=== PATIENT | female | born 1995 | race Caucasian/White ===

== ENCOUNTER → 2017-07-22 16:05 | Outpatient (CLI) | payer OTHER, SELFPAY ==
[2017-07-22 17:42] LABS: HCG,Quantitative 223 mIU/mL
== END ==
PROVIDERS: Visit Provider Nurse Practitioner Obstetrics & Gynecology
DX: Z32.00 Encounter for pregnancy test, result unknown (principal)
CPT/HCPCS: 36415; 84702

== ENCOUNTER → 2017-07-26 07:35 | Outpatient (CLI) | payer OTHER, SELFPAY ==
[2017-07-26 11:57] LABS: HCG,Quantitative 1369 mIU/mL
== END ==
PROVIDERS: Visit Provider Obstetrics & Gynecology
DX: Z32.00 Encounter for pregnancy test, result unknown (principal)
CPT/HCPCS: 36415; 84702

== ENCOUNTER → 2017-08-19 18:09 | Outpatient (CLI) | payer OTHER, SELFPAY ==
[2017-08-22 19:22] LABS: Neisseria gonorrhoeae, NAA Negative (Negative)
== END ==
PROVIDERS: Family Provider Physician Assistant; PCP Physician Assistant; Visit Provider Obstetrics & Gynecology
DX: Z34.90 Encounter for supervision of normal pregnancy, unspecified, unspecified trimester (principal)
CPT/HCPCS: 87491; 87591

== ENCOUNTER → 2017-08-27 10:28 | Outpatient (CLI) | payer OTHER, SELFPAY ==
--- NOTE | 2017-08-27 10:32 | US_ITS ---
US OB transvaginal HISTORY: ITS.REASON: US OB Dates ORDERING PHYSICIAN: Mitali Sandra MD PATIENT AGE: 22 years COMPARISON: None FINDINGS: An intrauterine gestational sac is present with a pole with a crown-rump length of 2.47cm correlating to gestational age of 9w2d . heart tones are present with an FHR of 157 bpm's. Yolk sac is noted. The amnion and chorion have not yet fused. Adnexa: Unremarkable. IMPRESSION: Live intrauterine gestation at 9 weeks 2 days as described above. Estimated due date is 03/30/2018
[2017-08-27 12:06] LABS: Basophils % 0.1 % (0.1-2.0); Eosinophils # 0.1 K/mm3 (0.0-0.4); Eosinophils % 0.8 % (0.1-12.0); Hematocrit 39.9 % (37.0-47.0); Hemoglobin 13.5 g/dL (12.2-16.2); Lymphocytes # 1.6 K/mm3 (0.7-4.5); Lymphocytes % 14.1 K/mm3 (10-50); Mean Corpuscular HGB Conc 33.7 g/dL (31.8-35.4); Mean Corpuscular Hemoglobin 27.5 pg (27.0-31.2); Mean Corpuscular Volume 81.6 fl (81-99); Mean Platelet Volume 8.1 fl (7.4-10.4); Monocytes # 0.4 K/mm3 (0.1-1.0); Monocytes % 3.8 % (1.7-9.3); Neutrophils % 81.2 % (37.0-80.0); Platelet Count 251 K/mm3 (142-424); Red Blood Count 4.89 M/mm3 (4.20-5.40); Red Cell Distribution Width 12.6 % (11.5-17.5); White Blood Count 11.1 K/mm3 (4.5-13.0)
[2017-08-28 11:17] LABS: HIV Screen 4th Generation wRfx Non Reactive (Non Reactive); Rapid Plasma Reagin Ab Titer Non Reactive (NonRea<1:1)
[2017-09-03 06:51] LABS: Hepatitis B Surface Antigen Negative
[2017-09-03 06:54] LABS: Hepatitis C Antibody <0.1
== END ==
PROVIDERS: Family Provider Physician Assistant; PCP Physician Assistant; Visit Provider Obstetrics & Gynecology
DX: O26.841 Uterine size-date discrepancy, first trimester (principal)
CPT/HCPCS: 36415; 76830; 85025; 86592; 86703; 86762; 86850; 87340; 87380; G0432

== ENCOUNTER 2017-11-07 11:49 | Outpatient (CLI) | payer OTHER, SELFPAY ==
[2017-11-07 11:59] VITALS: BMI 33.6
[2017-11-07 12:04] LABS: Microscopic, Urine URINE MICROSCOPIC (MICROSCOPIC)
[2017-11-07 12:07] LABS: Appearance,Urine CLOUDY (Clear); Bilirubin,Urine Negative (Negative); Blood, Urine 3+ (Negative); Color,Urine YELLOW (Yellow); Glucose,Urine (UA) Negative (Negative); Ketones,Urine Negative (Negative); Leukocyte Esterase,Urine TRACE (Negative); Nitrate,Urine Negative (Negative); PH,Urine 6.5 (5.0-8.5); Protein,Urine TRACE (Negative); Specific Gravity, Urine 1.025 (1.005-1.030)
[2017-11-07 12:12] VITALS: BP 153/76; PULSE 64; RESP 18; TEMP 36.9; O2SAT 96; BMI 33.6
[2017-11-07 12:21] LABS: RBC,Urine 50-100 #/hpf (0-3); WBC,Urine Occasional #/hpf (0-3)
[2017-11-07 12:22] LABS: Bacteria,Urine 1+ /lpf
== END 2017-11-07 14:20 | disposition home or self-care (01) ==
LOC: OBOUT 11:50 → OB 11:51
PROVIDERS: Visit Provider Obstetrics & Gynecology
DX: O26.92 Pregnancy related conditions, unspecified, second trimester (principal); Z3A.19 19 weeks gestation of pregnancy; R10.30 Lower abdominal pain, unspecified
CPT/HCPCS: 59025; 81001; 96360

== ENCOUNTER → 2017-11-10 15:10 | Outpatient (CLI) | payer OTHER, SELFPAY ==
--- NOTE | 2017-11-10 15:11 | US_ITS ---
US OB /maternal detail: INDICATION: Complete 20 week evaluation ITS.REASON: US OB Complete ORDERING PHYSICIAN: Mitali Sandra MD PATIENT AGE: 22 years TECHNIQUE: ultrasound transabdominal scanning. COMPARISON: 08/27/2017 early ultrasound at which time a gestational age 9 weeks 2 days FINDINGS: Single viable intrauterine gestation. Cephalic position. Placenta: Anterior placenta grade 1 with. No previa. There is adequate amount fluid. The cervix appears satisfactory. Closed and measuring up to 3 in length. Complete survey performed and was unremarkable on the submitted images as in PACS. No discrete anomalies identified on survey imaging by technologist. Active fetus. Appears to be a 2 vessel rather than three-vessel cord. Satisfactory umbilical cord insertion. 4- chamber heart noted. Survey of brain & ventricles. Face and neck survey unremarkable. Nasion lip region unremarkable Diaphragm and chest views unremarkable. Abdomen: Both kidneys noted and unremarkable. Stomach noted and satisfactory. Spine: Survey of the spine satisfactory with no anomalies identified nor imaged. Both arms and legs noted. Appears to be a female fetus Amniotic Fluid: Adequate. Maternal adnexa: No incidental findings encountered. Measurements: Average ultrasound age 20 weeks 5 days. Gestational Age 20 weeks 0 days. Based on and the 06-23-17 Estimated due date by ultrasound age March 28, 2018. Estimated weight 330 g +/- 48 grams. BPD = 20 week 5 day OFD = 21 week 2 day HC = 20 week 2 day AC = 20 week 1 day FL = 20 week 0 day Growth Percentile= 49% percentile Heart Rate = 146 Cerebellum = 20 week 4 day Humerus = 20 week 5 day HC/AC is 1.2.0 CI is 76%. FL/BPD is 66%. FL/AC is 22%. IMPRESSION: Single active viable intrauterine gestation. Cephalic position. 20 week 2 day average ultrasound age Anterior placenta no previa. Appears to be a two-vessel cord Otherwise unremarkable anatomical survey
== END ==
PROVIDERS: Family Provider Physician Assistant; PCP Physician Assistant; Visit Provider Obstetrics & Gynecology
DX: Z36.0 Encounter for antenatal screening for chromosomal anomalies (principal)
CPT/HCPCS: 76811

== ENCOUNTER → 2017-11-21 13:34 | Outpatient (CLI) | payer OTHER, SELFPAY ==
[2017-11-21 14:57] LABS: Collection Time,Urine 24 hours; Creatinine 24 Hour,Urine 1420 mg/24hr (630-2500); Creatinine Clearance Urine 167.1 mL/min (25-115); Creatinine,Serum 0.59 mg/dL (0.55-1.02); Creatinine,Urine Random 71 mg/dL (20-320); Total Volume,Urine 2000 mL (600-1600)
[2017-11-21 14:58] LABS: Total Protein 24 Hour,Urine 164 mg/24 hr (40-90); Total Protein,Urine Random 8.2 mg/dL (0.0-11.9)
== END ==
PROVIDERS: Family Provider Physician Assistant; PCP Physician Assistant; Visit Provider Obstetrics & Gynecology
DX: Z34.90 Encounter for supervision of normal pregnancy, unspecified, unspecified trimester (principal)
CPT/HCPCS: 36415; 82575; 84155

== ENCOUNTER 2018-01-17 10:45 | Outpatient (CLI) | payer OTHER, SELFPAY ==
[2018-01-17 10:54] VITALS: BMI 36.8
[2018-01-17 11:06] LABS: Bilirubin,Urine Negative (Negative); Blood, Urine Negative (Negative); Color,Urine YELLOW (Yellow); Glucose,Urine (UA) Negative (Negative); Ketones,Urine Negative (Negative); Leukocyte Esterase,Urine TRACE (Negative); Microscopic, Urine URINE MICROSCOPIC (MICROSCOPIC); Nitrate,Urine Negative (Negative); PH,Urine 7.5 (5.0-8.5); Protein,Urine Negative (Negative); Urobilinogen,Urine 0.2 EU/dl (0.2)
[2018-01-17 11:08] VITALS: BP 135/79; PULSE 91; RESP 18; TEMP 36.8; O2SAT 98; BMI 35.9
[2018-01-17 11:08] LABS: Appearance,Urine Cloudy (Clear)
[2018-01-17 11:15] LABS: Amorphous Sediment,Urine 2+ /lpf; Bacteria,Urine 1+ /lpf; Squamous Epithelial Cell,Urine Occasional #/hpf (0-5); WBC,Urine Occasional #/hpf (0-3)
[2018-01-17 13:12] LABS: Basophils % 0.2 % (0.1-2.0); Eosinophils # 0.1 K/mm3 (0.0-0.4); Eosinophils % 0.7 % (0.1-12.0); Hematocrit 31.3 % (37.0-47.0); Lymphocytes # 1.5 K/mm3 (0.7-4.5); Lymphocytes % 10.8 K/mm3 (10-50); Mean Corpuscular HGB Conc 38.3 g/dL (31.8-35.4); Mean Corpuscular Hemoglobin 31.3 pg (27.0-31.2); Mean Corpuscular Volume 81.7 fl (81-99); Mean Platelet Volume 7.9 fl (7.4-10.4); Monocytes # 0.5 K/mm3 (0.1-1.0); Monocytes % 3.4 % (1.7-9.3); Neutrophils # 11.7 K/mm3 (1.8-7.8); Neutrophils % 84.8 % (37.0-80.0); Platelet Count 189 K/mm3 (142-424); Red Blood Count 3.84 M/mm3 (4.20-5.40); Red Cell Distribution Width 13.1 % (11.5-17.5); White Blood Count 13.8 K/mm3 (4.5-13.0)
[2018-01-17 13:25] LABS: Activated Partial Thrombo Time 29.6 seconds (23.6-34.0); Alanine Aminotransferase 13 U/L (12-78); Anion Gap 13.7 mEq/L (5-15); Aspartate Amino Transferase 7 U/L (15-37); Blood Urea Nitrogen 7 mg/dL (7-18); Calcium 8.6 mg/dL (8.5-10.1); Carbon Dioxide 23 mmol/L (21.0-32.0); Chloride 102 mmol/L (98-107); Creatinine Clearance Estimated 266 mL/min (0-300); Creatinine,Serum 0.49 mg/dL (0.55-1.02); Estimated Glomerular Filt Rate 161 ml/min (>60); GFR (African American) 195 ML/MIN (>60); Glucose 79 mg/dL (74-106); INR 0.99 (0.9-1.1); Potassium 3.7 mmoL/L (3.5-5.1); Prothrombin Time 10.2 seconds (9.4-11.8); Sodium 135 mmol/L (136-145); Uric Acid 3.1 mg/dL (2.6-7.2)
[2018-01-17 13:36] LABS: D-Dimer 736 ng/mL (0-400)
[2018-01-17 14:59] LABS: Fibrinogen 423 mg/dL (204-500)
== END 2018-01-17 13:58 | disposition home or self-care (01) ==
LOC: OBOUT 10:48 → OB 10:48
PROVIDERS: Obstetrics & Gynecology; PCP Physician Assistant; Visit Provider Obstetrics & Gynecology
DX: O26.892 Other specified pregnancy related conditions, second trimester (principal); Z3A.29 29 weeks gestation of pregnancy; R51 Headache; R42 Dizziness and giddiness; R11.2 Nausea with vomiting, unspecified
CPT/HCPCS: 36415; 59025; 80048; 81001; 84450; 84460; 84550; 85025; 85378; 85384; 85610; 85730

== ENCOUNTER → 2018-02-17 12:06 | Outpatient (CLI) | payer OTHER, SELFPAY ==
--- NOTE | 2018-02-17 12:09 | US_ITS ---
US OB biophysical profile, US OB follow up, US SD Ratio umbilical artery: Indication: Large for gestational age, chronic hypertension ITS.REASON: US OB- BPP Growth S/D Ratio-Chronic Hypertension ORDERING PHYSICIAN: Mitali Sandra MD PATIENT AGE: 22 years FINDINGS: The following parameters are obtained: Average ultrasound age is 36w0d. Estimated due date by ultrasound is 03/17/2018. Estimated weight is 2763 grams. This is 88th percentile BPD: 36w1d OFD: OFD HC: 36w5d AC: 36w3d FL: 34w2d heart rate: 153 bpm. HC/AC: 1.00 (0.95-1.11) Cephalic index: 77% (70-86%) FL/BPD: 74% (71-87%) FL/AC: 21% (20-24%) Amniotic fluid index: 11 cm Qualitative AFV: 2 breathing movements: 2 Gross body movements: 2 Tone: 2 Biophysical profile score: 8/8 Doppler evaluation of the umbilical artery: SD ratio: 2.9 Resistive index: 0.65 No obvious anomalies evident. Placenta: Anterior GR1 Cervix: Appears closed and measures 2.6 cm IMPRESSION: There is a single live fetus present which is in cephalic presentation with average ultrasound age of 36 weeks and 0 days. Estimated weight is 2763 g which is 88 percentile. No obvious anomalies. Biophysical profile is 8 of 8. Placenta is anterior and grade 2 Umbilical artery Doppler evaluation is unremarkable. Amniotic fluid index is normal at 11 cm
== END ==
PROVIDERS: PCP Obstetrics & Gynecology; Visit Provider Obstetrics & Gynecology
DX: O10.919 Unspecified pre-existing hypertension complicating pregnancy, unspecified trimester (principal)
CPT/HCPCS: 76816; 76819; 76820

== ENCOUNTER → 2018-02-18 09:15 | Outpatient (CLI) | payer OTHER, SELFPAY ==
[2018-02-18 10:33] LABS: Creatinine,Serum 0.53 mg/dL (0.55-1.02)
[2018-02-18 11:15] LABS: Creatinine,Urine Random 67 mg/dL (20-320); Total Protein,Urine Random 11.5 mg/dL (0.0-11.9)
[2018-02-18 11:44] LABS: Collection Time,Urine 24 hours; Creatinine 24 Hour,Urine 1240 mg/24hr (630-2500); Creatinine Clearance Urine 162.4 mL/min (25-115); Total Protein 24 Hour,Urine 213 mg/24 hr (40-90); Total Volume,Urine 1850 mL (600-1600)
== END ==
PROVIDERS: Visit Provider Obstetrics & Gynecology
DX: Z34.90 Encounter for supervision of normal pregnancy, unspecified, unspecified trimester (principal)
CPT/HCPCS: 82575; 84155

== ENCOUNTER → 2018-02-26 16:38 | Outpatient (CLI) | payer OTHER, SELFPAY | LOC: LAB 16:39 → LAB.DROPOF 02-27 10:14 | PROVIDERS: Visit Provider Obstetrics & Gynecology | DX: Z34.90 Encounter for supervision of normal pregnancy, unspecified, unspecified trimester (principal) | CPT/HCPCS: 86403 ==

== ENCOUNTER → 2018-03-06 07:52 | Outpatient (CLI) | payer OTHER, SELFPAY ==
--- NOTE | 2018-03-06 07:53 | US_ITS ---
US OB BPP w/Fet-Mat S/D: Umbilical artery Doppler evaluation INDICATION: Large gestational age ORDERING PHYSICIAN: Mitali Sandra MD PATIENT AGE: 22 years TECHNIQUE: ultrasound transabdominal scanning. COMPARISON: No previous relevant studies. FINDINGS: Single viable intrauterine gestation. CEPH position. Placenta: Anterior placenta grade 1-2. There is average amount fluid. The cervix appears satisfactory. Closed and measuring 3 cm in length. Measurements: Average ultrasound age 37w3d. Gestational Age 36w4d. Estimated due date by ultrasound age 0103/24/2018. Estimated weight 3216 grams. BPD = 37w6d HC = 37w5d AC = 28w0d FL = 36w1d Growth Percentile= 77 percentile Heart Rate = 153 Biophysical profile is 8 of 8 with an PIO of 16 cm HC/AC is 0.97 (0.93-1.11). CI is 80% (70-86%). FL/BPD is 76% (71-87%). FL/AC is 21% (20-24%). IMPRESSION: 1. There is a single live fetus presentation with an average ultrasound age of 37 weeks and 3 days. Estimated weight is 3216 g which is 77 percentile. 2. Biophysical profile is 8 of 8 with amniotic fluid index of 16 cm. 3. Unremarkable Doppler evaluation of the umbilical artery
== END ==
PROVIDERS: PCP Physician Assistant; Visit Provider Obstetrics & Gynecology
DX: O36.63X0 Maternal care for excessive fetal growth, third trimester, not applicable or unspecified (principal)
CPT/HCPCS: 76811; 76819; 76820

== ENCOUNTER 2018-03-09 18:17 | Outpatient (CLI) | payer OTHER, SELFPAY ==
[2018-03-09 18:37] VITALS: RESP 20; BMI 39.6
[2018-03-09 18:56] LABS: Microscopic, Urine URINE MICROSCOPIC (MICROSCOPIC)
[2018-03-09 19:07] LABS: Appearance,Urine CLEAR (Clear); Bilirubin,Urine Negative (Negative); Blood, Urine Negative (Negative); Color,Urine YELLOW (Yellow); Glucose,Urine (UA) Negative (Negative); Ketones,Urine Negative (Negative); Leukocyte Esterase,Urine 1+ (Negative); Nitrate,Urine Negative (Negative); Protein,Urine Negative (Negative); Specific Gravity, Urine 1.015 (1.005-1.030); Urobilinogen,Urine 0.2 EU/dl (0.2)
[2018-03-09 19:15] LABS: Bacteria,Urine Trace /lpf
== END 2018-03-09 19:55 | disposition home or self-care (01) ==
LOC: OBOUT 18:19 → OB 18:20
PROVIDERS: PCP Physician Assistant; Visit Provider Obstetrics & Gynecology
DX: O13.3 Gestational [pregnancy-induced] hypertension without significant proteinuria, third trimester (principal); Z3A.37 37 weeks gestation of pregnancy
CPT/HCPCS: 59025; 81001; 87086

== ENCOUNTER 2018-03-18 16:09 | Inpatient (IN) ==
[2018-03-18 17:17] LABS: Basophils % 0.1 % (0.1-2.0); Eosinophils # 0.2 K/mm3 (0.0-0.4); Eosinophils % 1.3 % (0.1-12.0); Hematocrit 35.1 % (37.0-47.0); Hemoglobin 12.1 g/dL (12.2-16.2); Lymphocytes # 2.1 K/mm3 (0.7-4.5); Lymphocytes % 15.6 % (10-50); Mean Corpuscular HGB Conc 34.4 g/dL (31.8-35.4); Mean Corpuscular Hemoglobin 28.3 pg (27.0-31.2); Mean Corpuscular Volume 82.3 fl (81-99); Mean Platelet Volume 8.6 fl (7.4-10.4); Monocytes # 0.6 K/mm3 (0.1-1.0); Monocytes % 4.4 % (1.7-9.3); Neutrophils # 10.3 K/mm3 (1.8-7.8); Neutrophils % 78.6 % (37.0-80.0); Platelet Count 207 K/mm3 (142-424); Red Blood Count 4.27 M/mm3 (4.20-5.40); Red Cell Distribution Width 13.2 % (11.5-17.5); White Blood Count 13.1 K/mm3 (4.5-13.0)
[2018-03-19 06:15] LABS: Basophils % 0.1 % (0.1-2.0); Eosinophils # 0.1 K/mm3 (0.0-0.4); Eosinophils % 1.1 % (0.1-12.0); Hematocrit 34.5 % (37.0-47.0); Lymphocytes # 2.3 K/mm3 (0.7-4.5); Lymphocytes % 17.7 % (10-50); Mean Corpuscular HGB Conc 34.7 g/dL (31.8-35.4); Mean Corpuscular Hemoglobin 28.7 pg (27.0-31.2); Mean Corpuscular Volume 82.7 fl (81-99); Mean Platelet Volume 8.9 fl (7.4-10.4); Monocytes # 0.6 K/mm3 (0.1-1.0); Neutrophils # 9.8 K/mm3 (1.8-7.8); Neutrophils % 76.1 % (37.0-80.0); Platelet Count 195 K/mm3 (142-424); Red Blood Count 4.17 M/mm3 (4.20-5.40); Red Cell Distribution Width 13.4 % (11.5-17.5); White Blood Count 12.9 K/mm3 (4.5-13.0)
[2018-03-19 06:24] LABS: Anion Gap 17.4 mEq/L (5-15); Calcium 8.4 mg/dL (8.5-10.1); Potassium 3.4 mmoL/L (3.5-5.1)
[2018-03-19 06:29] LABS: Activated Partial Thrombo Time 28.5 seconds (23.6-34.0); INR 0.97 (0.9-1.1)
[2018-03-19 06:54] LABS: Microscopic, Urine URINE MICROSCOPIC (MICROSCOPIC)
[2018-03-19 06:59] LABS: Appearance,Urine CLEAR (Clear); Bilirubin,Urine Negative (Negative); Blood, Urine 2+ (Negative); Color,Urine YELLOW (Yellow); Glucose,Urine (UA) Negative (Negative); Ketones,Urine Negative (Negative); Leukocyte Esterase,Urine Negative (Negative); Protein,Urine Negative (Negative); Urobilinogen,Urine 0.2 EU/dl (0.2)
[2018-03-19 07:09] LABS: Bacteria,Urine Trace /lpf; Squamous Epithelial Cell,Urine Occasional #/hpf (0-5)
--- NOTE | 2018-03-19 21:54 | Progress Note ---
[facility] Anesthesia Checklist - Structural Data Admitted From: Inpatient Planned Operative Procedure/s: labor epidural Consent for Planned Operative Procedure(s) Verified: Yes - Airway Assessment C-Spine Mobility Assessed: Yes TMJ Mobility Assessed: Yes Dentition: Good Dentition - Neurological Assessment Level of Consciousness: Awake, Alert, Appropriate - Anesthesia Plan Anesthesia Risk discussed: Yes Anesthesia Plan: Verified ASA Class: II Anesthesia Type: Epidural [facility] History I have reviewed the patient's past medical history: Yes Medical History: Denies:: Anxiety, Depression, Diabetes Mellitus Type 1, Hyperlipidemia, Hypertension, Migraine, MRSA, Seizures Other Surgeries: No: Amputation: No Fractures: No - *Social History Smoking Status: Never smoker Alcohol Intake: never Substance Use Type: denies use - Psychiatric History Pschychiatric History:: Denies:: Anxiety, Depression *Family Hx:: Cancer, Diabetes, Thyroid Disorder, Hyperlipidemia, Asthma Para: 0
--- NOTE | 2018-03-20 08:12 | History & Physical Report ---
OB - H&P: HPI Antepartum - History of Present Illness Chief complaint: IOL History of present illness: 22 yo G1 at 39+ scheduled IOL at term complicated by CHTN vs PIH labs WNL Initial 20 wk anatomy ultrasound identified a 2VC, but, f/u ultrasound done by MFM identified 3VC testing has been reassuring BP has been managed with labetalol 100mg BID Cervix unfavorable and she is brought in tonight for PG ripening and intra- cervical yarbrough bulb [facility] History I have reviewed the patient's past medical history: Yes Medical History: Denies:: Anxiety, Depression, Diabetes Mellitus Type 1, Hyperlipidemia, Hypertension, Migraine, MRSA Other Surgeries: No: Amputation: No Fractures: No - *Social History Smoking Status: Never smoker Alcohol Intake: never Substance Use Type: denies use - Psychiatric History Pschychiatric History:: Denies:: Anxiety, Depression *Family Hx:: Cancer, Diabetes, Thyroid Disorder, Hyperlipidemia, Asthma Para: 0 Review of Systems - Review of Systems CONSTITUTIONAL: no fever/chills HEENT: no oral lesions PULMONARY: no shortness of breath or difficulty breathing CV: no racing heart, palpitations or chest pain ABD: no abdominal pain, N/V : irreg ctx; no lof/vb SKIN: no new rash or skin lesions EXT: no edema NEURO: no mental status changes, no [place]/visual changes PSYCH: no current anxiety/depression OB: normal movement Meds Home Medications Medication Instructions Recorded Confirmed Type vit 123-iron 28 mg-folic 1 cap PO HS 08/19/17 03/19/18 History acid 800 [id number]-[id number]-3g 235 mg capsule Labetalol HCl 100 mg PO BID 03/18/18 03/18/18 History Nitrofurantoin Monohyd/M-Cryst 100 mg PO BID 03/18/18 03/18/18 History [Nitrofurantoin [place]-Mcr 100 mg] Allergies Allergy/AdvReac Type Severity Reaction Status Date / Time No Known Allergies Allergy Verified 03/12/18 10:37 OB - H&P: Exam - Physical Exam Vital signs: Temp Pulse Resp BP Pulse Ox 98.5 F 75 16 148/88 H 98 03/19/18 08:10 03/19/18 08:10 03/19/18 08:10 03/19/18 08:10 03/19/18 08:10 Narrative: CONSTITUTIONAL: no acute distress HEENT: mucous membranes moist PULMONARY: breathing unlabored without audible wheezes CV: no tachycardia or visible JVD; normal LE peripheral pulses ABD: soft, NT/ND, no guarding : Cervix 1/80/-2 Yarbrough bulb placed through cervix under sterile conditions and balloon insufflated with 30cc sterile water Cervidil placed in vagina Balloon pulled taught against internal cervical os and tubing taped to p atient's inner thigh SKIN: no visible rash or lesions EXT: 1+ edema LEs NEURO: alert/oriented, no altered mental status PSYCH: appropriate mood and demeanor without visible anxiety/depression NST: Basline: 150 Variability: moderate Accelerations: yes Decelerations: no Impression: Reactive, Category 1 OB - A/P Antepartum (1) Unfavorable cervix in term Current visit: Yes Status: Acute (2) Hypertension affecting in third trimester Problem details: labetalol 100 BID Current visit: No Status: Acute (3) LGA (large for gestational age) fetus Problem details: 88% Current visit: No Status: Acute - Additional Plan Additional Information:: IOL at term PG ripening with cervidil overnight Yarbrough bulb placed MIGUEL against cervix Start pitocin augmentation in am status reassuring continuous monitoring
--- NOTE | 2018-03-20 10:59 | Progress Note ---
Labor Note - Subjective: Date: 03/19/18 Time: 18:05 regular contraction - Objective: NST:: Reactive Contractions:: every 2-3 minutes Cervical Dilation:: 3-4 Effacement:: 80% Station: 0 Membranes: ruptured - Fetus: monitoring type:: Internal - Assessment: Labor progressing?: Yes Patient Problems: All Active Problems Unfavorable cervix in term (Acute) Hypertension affecting in third trimester (Acute) LGA (large for gestational age) fetus (Acute) Nausea and vomiting during (Acute) (Acute) - Plan: Anesthesia for epidural?: Yes
--- NOTE | 2018-03-20 11:01 | Procedure Note ---
- Delivery Note Delivery Date:: 03/20/18 Delivery Time:: 07:30 Anesthesia Type: Epidural Was labor medically induced?: Yes Induction method: per pitocin protocol Infant delivered prior to 39 weeks?: No Justification for early elective delivery:: Gestational Hypertension at 1 minute: 8 at 5 minutes: 9 LAC or MLE?: LAC Delivery Procedure:: Spontaneous vaginal delivery of vigorous liveborn over intact perineum. Apgars: 8 & 9 Delivery uncomplicated; no nuchal cord or shoulder dystocia with delivery Infant placed immediately on maternal abdomen for nursing assessment & BRITTA immediately after umbilical cord clamped/cut Placenta spontaneously expressed and examined; noted to be complete/intact Vulva, vagina, and cervix inspected; second degree laceration repaired with 2-0 vicryl EBL: 300cc All sponge/needle/instrument counts correct at conclusion of procedure Disposition: Mom/baby stable to recovery in LDRP Laceration:: vaginal Placental Delivery Description: Spontaneous
[2018-03-21 06:49] LABS: Hematocrit 26.7 % (37.0-47.0); Hemoglobin 9.2 g/dL (12.2-16.2)
--- NOTE | 2018-03-21 17:55 | Progress Note ---
Internal Medicine - PN: Subj *Date: 03/21/18 *Time: 14:30 Interval history: PPD #1 No complaints Lochia small, pain control sufficient Akin reg diet, ambulating and voiding without difficulty Exam Vital signs and Labs for Last 24 Hours: Temp Pulse Resp BP Pulse Ox 98.5 F 75 16 148/88 H 98 03/19/18 08:10 03/19/18 08:10 03/19/18 08:10 03/19/18 08:10 03/19/18 08:10 Laboratory Results - last 24 hr 03/21/18 06:38: Hgb 9.2 L, Hct 26.7 L I & O for Last 24 hours: Intake & Output 03/19/18 03/20/18 03/21/18 03/22/18 11:59 11:59 11:59 11:59 Weight 224 lb Narrative: CONSTITUTIONAL: no acute distress HEENT: mucous membranes moist PULMONARY: breathing unlabored without audible wheezes CV: no tachycardia or visible JVD; normal LE peripheral pulses ABD: soft, NT/ND, no guarding : fundus firm at/below umbilicus SKIN: no visible rash or lesions EXT: 1+ edema LEs NEURO: alert/oriented, no altered mental status PSYCH: appropriate mood and demeanor without visible anxiety/depression Assessment and Plan (1) Unfavorable cervix in term Current visit: Yes Status: Acute Category: Medical Code(s): O34.40 - Maternal care for other abnormalities of cervix, unspecified trimester (2) Normal vaginal delivery Current visit: Yes Status: Acute Category: Medical Code(s): O80 - Encounter for full-term uncomplicated delivery (3) Hypertension affecting in third trimester Problem details: labetalol 100 BID Current visit: No Status: Acute Category: Medical Code(s): O16.3 - Unspecified maternal hypertension, third trimester (4) LGA (large for gestational age) fetus Problem details: 88% Current visit: No Status: Acute Category: Medical - Assessment and plan all Dx Assessment and Plan for all problems:: Continue routine care Anticipate discharge tomorrow
[2018-03-21 21:04] VITALS: BP 132/71
--- NOTE | 2018-03-22 09:31 | Progress Note ---
Internal Medicine - PN: Subj *Date: 03/22/18 *Time: 09:31 Interval history: This is hospital day #5 and day #2. The patient is afebrile. Her vital signs are stable. Her blood pressure is 130/80. DTRs are normal. Lochia normal. Uterine fundus involuting well. She will be discharged today. Exam Vital signs and Labs for Last 24 Hours: Temp Pulse Resp BP Pulse Ox 98.2 F 90 16 132/71 98 03/21/18 20:46 03/21/18 20:46 03/21/18 20:46 03/21/18 20:46 03/21/18 20:46 I & O for Last 24 hours: Intake & Output 03/19/18 03/20/18 03/21/18 03/22/18 11:59 11:59 11:59 11:59 Weight 224 lb Assessment and Plan (1) Unfavorable cervix in term Current visit: Yes Status: Acute Category: Medical Code(s): O34.40 - Maternal care for other abnormalities of cervix, unspecified trimester (2) Normal vaginal delivery Current visit: Yes Status: Acute Category: Medical Code(s): O80 - Encounter for full-term uncomplicated delivery (3) Hypertension affecting in third trimester Problem details: labetalol 100 BID Current visit: No Status: Acute Category: Medical Code(s): O16.3 - Unspecified maternal hypertension, third trimester (4) LGA (large for gestational age) fetus Problem details: 88% Current visit: No Status: Acute Category: Medical
--- NOTE | 2018-03-22 09:34 | Discharge Summary ---
General - General Admission date:: 03/18/18 Discharge date: 03/22/18 (This 22-year-old 1, now para 1, Ab0 white female was admitted at 38-2/7 weeks for induction because of preeclampsia. She was treated with Cervidil, intravenous Pitocin, and Cytotec, and ultimately delivered at 0711 on 03/20/18. The baby was an 9/9, 8 pound 0 ounce, 19.5 inch female infant, who is breast-feeding and is done well. , the patient is done well. Her blood pressure has normalized at 130/80. Her DTRs are normal. Her lochia is normal. Her uterine fundus has involuted well. She is discharged home on the second day on iron and vitamins, and on Tylenol and Motrin, as needed for pain. She is given appropriate instructions as to diet, exercise, and perineal care, and she is to return to see Dr. Sandra for a checkup in 2 weeks. Her blood type is A+. Her rubella titer is immune.) Objective Vital signs: Temp Pulse Resp BP Pulse Ox 98.2 F 90 16 132/71 98 03/21/18 20:46 03/21/18 20:46 03/21/18 20:46 03/21/18 20:46 03/21/18 20:46 DS: Diagnosis - Discharge Diagnosis (1) Unfavorable cervix in term Status: Acute (2) Normal vaginal delivery Status: Acute (3) Hypertension affecting in third trimester Status: Acute Problem details: labetalol 100 BID (4) LGA (large for gestational age) fetus Status: Acute Problem details: 88% Discharge Plan - Patient Discharge Instructions Patient Instructions: Depression, DI for Labor and Delivery, Vaginal , [facility] Post Discharge Instructions - Follow up Plan Home Medications: Home Medications Medication Instructions Recorded Confirmed Type vit 123-iron 28 mg-folic 1 cap PO HS 08/19/17 03/19/18 History acid 800 dgq-weewf-9l 235 mg capsule Labetalol HCl 100 mg PO BID 03/18/18 03/18/18 History Nitrofurantoin Monohyd/M-Cryst 100 mg PO BID 03/18/18 03/18/18 History [Nitrofurantoin [place]-Mcr 100 mg] Prescriptions/Medication Reconciliation: No Action vit 123-iron 28 mg-folic acid 800 kmh-hxauk-9w 235 mg capsule 1 cap PO HS Nitrofurantoin Monohyd/M-Cryst [Nitrofurantoin [place]-Mcr 100 mg] 100 mg PO BID Labetalol HCl 100 mg PO BID
== END 2018-03-22 11:20 | disposition home or self-care (01) | DRG 807 ==
LOC: OB 16:09
PROVIDERS: ADMIT Obstetrics & Gynecology; ATTEND Obstetrics & Gynecology
CPT/HCPCS: C1758

== ENCOUNTER → 2019-07-28 14:07 | Outpatient (CLI) | payer OTHER, SELFPAY ==
[2019-07-28 16:07] LABS: HCG,Quantitative < 2 mIU/ml (0-5.42)
== END ==
PROVIDERS: Visit Provider Obstetrics & Gynecology
DX: Z34.90 Encounter for supervision of normal pregnancy, unspecified, unspecified trimester (principal)
CPT/HCPCS: 36415; 84702

== ENCOUNTER → 2019-11-15 17:57 | Outpatient (CLI) | payer OTHER, MEDICAID, SELFPAY ==
[2019-11-15 19:04] LABS: HCG,Quantitative 5477 mIU/ml (0-5.42)
== END ==
PROVIDERS: Visit Provider Obstetrics & Gynecology
DX: Z32.00 Encounter for pregnancy test, result unknown (principal)
CPT/HCPCS: 36415; 84702

== ENCOUNTER → 2019-12-06 14:53 | Outpatient (CLI) | payer OTHER, MEDICAID, SELFPAY ==
--- NOTE | 2019-12-06 14:53 | US_ITS ---
PROCEDURE: US OB TRANSVAGINAL CLINICAL INDICATION: Dates Early Ob for dates COMPARISON: US OBBIOCOMP US OB BPP w/Fet-Mat S/D from 03/06/2018 FINDINGS: An intrauterine gestational sac is present with a pole with a crown-rump length of 1.62cm correlating to gestational age of 8weeks 1day. heart tones are present with an FHR of 182bpm. Yolk sac is noted. There is a nineteen mm corpus luteum cyst on the right. No cul-de-sac fluid is evident. The uterus is retroverted IMPRESSION: Live IUP at 8 weeks 1 day Estimated due date by Ultrasound is 07/16/2020 Dictated by: Dilshad Herrera MD 12/06/2019 15:57 Dilshad Herrera MD in [place] 12/06/2019 15:57
== END ==
PROVIDERS: PCP Family Medicine; Visit Provider Obstetrics & Gynecology
DX: Z34.90 Encounter for supervision of normal pregnancy, unspecified, unspecified trimester (principal)
CPT/HCPCS: 76817

== ENCOUNTER → 2019-12-10 09:45 | Outpatient (CLI) | payer OTHER, MEDICAID, SELFPAY ==
[2019-12-10 10:27] LABS: Basophils % 0.2 % (0.1-2.0); Eosinophils # 0.1 K/mm3 (0.0-0.4); Hematocrit 37.3 % (37.0-47.0); Hemoglobin 13.5 g/dL (12.2-16.2); Lymphocytes # 1.8 K/mm3 (0.7-4.5); Lymphocytes % 16.3 % (10-50); Mean Corpuscular HGB Conc 36.1 g/dL (31.8-35.4); Mean Corpuscular Volume 83.1 fl (81-99); Mean Platelet Volume 8.1 fl (7.4-10.4); Monocytes # 0.5 K/mm3 (0.1-1.0); Monocytes % 4.1 % (1.7-9.3); Neutrophils # 8.5 K/mm3 (1.8-7.8); Neutrophils % 78.4 % (37.0-80.0); Platelet Count 251 K/mm3 (142-424); Red Blood Count 4.49 M/mm3 (4.20-5.40); Red Cell Distribution Width 12.6 % (11.5-17.5); White Blood Count 10.8 K/mm3 (4.8-10.8)
[2019-12-10 15:09] LABS: Barbiturates Screen,Urine Negative ng/ml (<200)
[2019-12-10 15:10] LABS: Amphetamine/Metha Screen,Urine Negative ng/ml (<1000); Benzodiazepines Screen,Urine Negative ng/ml (<200)
[2019-12-10 15:11] LABS: Cocaine Screen,Urine Negative ng/ml (<300); Methadone Screen,Urine Negative ng/ml (<300)
[2019-12-10 15:12] LABS: Cannabinoid Screen,Urine Negative ng/ml (<50)
[2019-12-10 15:13] LABS: Opiate Screen,Urine Negative ng/ml (<300); Phencyclidine Screen,Urine Negative ng/ml (<25)
[2019-12-11 18:20] LABS: HIV Screen 4th Generation wRfx Non Reactive (Non Reactive); Hepatitis B Surface Antigen Negative (Negative); Hepatitis C Antibody <0.1 s/co ratio (0.0-0.9); Rapid Plasma Reagin Ab Titer Non Reactive (NonRea<1:1); Rubella Antibodies, IgG 1.27 index (Immune >0.99)
== END ==
PROVIDERS: Visit Provider Obstetrics & Gynecology
DX: Z34.90 Encounter for supervision of normal pregnancy, unspecified, unspecified trimester (principal)
CPT/HCPCS: 36415; 80305; 85025; 86592; 86703; 86762; 86850; 87340; 87380; G0432

== ENCOUNTER 2020-02-15 11:41 | Emergency (ER) | payer OTHER, MEDICAID, SELFPAY ==
[2020-02-15] VITALS (10 sets, daily range): BP systolic 111–153; BP diastolic 49–76; PULSE 60–100; RESP 15–16; TEMP 36.7; O2SAT 98–100; BMI 32.9
--- NOTE | 2020-02-15 12:11 | [facility].EDGENADL ---
ED Disposition Clinical Impression: Near syncope, Nausea/vomiting in Urinary tract infection Qualifiers: Urinary tract infection type: acute cystitis Hematuria presence: with hematuria Qualified Code(s): N30.01 - Acute cystitis with hematuria Disposition: Home, Self-Care Condition on Discharge: Fair Instructions: DI for Syncope in Adults (Fainting), DI for Urinary Tract Infection (UTI) Additional Instructions: You have been evaluated for near syncope. Diagnosed with a urinary tract infection. Blood pressure is now within normal limits and no protein in your urine, no evidence of pre-eclampsia. Please follow-up with your OCCUPATIONAL HEALTH AND SAFETY OFFICER in 24 to 48 hours for symptom recheck. Return to the emergency department if you have any new or worsening symptoms. Prescriptions: cephALEXin [cephALEXin 500mg capsule*] 500 mg PO BID 7 Days #14 cap Transmission Status: Received by [facility] #[id number] Referrals: Umair Magdaleno MD [Primary Care Provider] - Time of Disposition: 13:43 - Critical Care Critical Care Time: No Attestation: On 02/15/20, the high probability of a clinically significant, sudden or life threatening deterioration of the following system(s) required my full and direct attention, intervention and personal management. The time I documented below is in addition to time spent performing reported procedures but includes the following listed in this critical care notation. Medical Decision Making - Medical Records Medical records reviewed: Yes: I reviewed the patient's medical records. - [place] Inquiry Pt receiving controlled substance: No Vital Signs: 02/15/20 11:42 02/15/20 11:56 02/15/20 12:12 Temperature 98.1 F Temperature Source Oral Pulse Rate Pulse Rate [Right Brachial] 79 100 H 72 Respiratory Rate 16 Blood Pressure Blood Pressure [Right Arm] 131/57 L 153/76 H 115/49 L Blood Pressure Mean [Right Arm] 81 101 71 Blood Pressure Source Blood Pressure Source [Right Arm] Automatic Cuff Automatic Cuff Automatic Cuff Blood Pressure Position Blood Pressure Position [Right Arm] Sitting Sitting Sitting 02 Sat by Pulse Oximetry 99 99 98 Oxygen Delivery Method Room Air Room Air Room Air 02/15/20 12:30 02/15/20 13:00 02/15/20 13:30 Temperature Temperature Source Pulse Rate Pulse Rate [Right Brachial] 72 70 67 Respiratory Rate Blood Pressure Blood Pressure [Right Arm] 111/56 L 116/56 L 120/55 L Blood Pressure Mean [Right Arm] 74 76 76 Blood Pressure Source Blood Pressure Source [Right Arm] Automatic Cuff Automatic Cuff Automatic Cuff Blood Pressure Position Blood Pressure Position [Right Arm] Sitting Sitting Sitting 02 Sat by Pulse Oximetry 98 100 100 Oxygen Delivery Method Room Air Room Air Room Air 02/15/20 14:00 02/15/20 14:30 02/15/20 15:00 Temperature Temperature Source Pulse Rate Pulse Rate [Right Brachial] 67 66 60 Respiratory Rate Blood Pressure Blood Pressure [Right Arm] 115/64 113/63 113/56 L Blood Pressure Mean [Right Arm] 81 79 75 Blood Pressure Source Blood Pressure Source [Right Arm] Automatic Cuff Automatic Cuff Automatic Cuff Blood Pressure Position Blood Pressure Position [Right Arm] Sitting Sitting Sitting 02 Sat by Pulse Oximetry 100 98 100 Oxygen Delivery Method Room Air Room Air Room Air 02/15/20 15:13 Temperature 98.1 F Temperature Source Oral Pulse Rate 81 Pulse Rate [Right Brachial] Respiratory Rate 15 Blood Pressure 113/56 L Blood Pressure [Right Arm] Blood Pressure Mean [Right Arm] Blood Pressure Source Automatic Cuff Blood Pressure Source [Right Arm] Blood Pressure Position Sitting Blood Pressure Position [Right Arm] 02 Sat by Pulse Oximetry Oxygen Delivery Method Room Air - Lab Data Lab Results 02/15/20 12:05: Urine Color Yellow, Urine Appearance Sl cloudy, Urine pH 6.5, Ur Specific [place] 1.020, Urine Protein Negative, Urine Glucose (UA) Negative, Urine Ketones Negative, U
[2020-02-15 12:15] LABS: Microscopic, Urine URINE MICROSCOPIC (MICROSCOPIC)
[2020-02-15 12:19] LABS: Appearance,Urine SL CLOUDY (Clear); Bilirubin,Urine Negative (Negative); Blood, Urine 2+ (Negative); Color,Urine YELLOW (Yellow); Glucose,Urine (UA) Negative (Negative); Ketones,Urine Negative (Negative); Leukocyte Esterase,Urine 1+ (Negative); Nitrate,Urine Negative (Negative); PH,Urine 6.5 (5.0-8.5); Protein,Urine Negative (Negative)
[2020-02-15 12:20] LABS: Basophils # 0.1 K/mm3 (0-0.2); Basophils % 0.4 % (0.1-2.0); Eosinophils # 0.2 K/mm3 (0.0-0.4); Eosinophils % 1.5 % (0.1-12.0); Hematocrit 37.9 % (37.0-47.0); Hemoglobin 13.3 g/dL (12.2-16.2); Lymphocytes # 1.5 K/mm3 (0.7-4.5); Lymphocytes % 12.6 % (10-50); Mean Corpuscular HGB Conc 35.1 g/dL (31.8-35.4); Mean Corpuscular Hemoglobin 29.1 pg (27.0-31.2); Mean Platelet Volume 10.2 fl (7.4-10.4); Monocytes # 0.3 K/mm3 (0.1-1.0); Monocytes % 2.8 % (1.7-9.3); Neutrophils # 9.5 K/mm3 (1.8-7.8); Neutrophils % 82.6 % (37.0-80.0); Platelet Count 217 K/mm3 (142-424); Red Blood Count 4.57 M/mm3 (4.20-5.40); Red Cell Distribution Width 15.2 % (11.5-17.5); White Blood Count 11.5 K/mm3 (4.8-10.8)
[2020-02-15 12:30] LABS: Alanine Aminotransferase 9 U/L (12-78); Albumin Level 3.9 g/dl (3.5-5.0); Albumin/Globulin Ratio 1.3 (1.1-1.8); Alkaline Phosphatase 70 U/L (38-126); Anion Gap 10.8 mEq/L (5-15); Aspartate Amino Transferase 20 U/L (14-36); Bilirubin,Total 0.5 mg/dl (0.2-1.3); Blood Urea Nitrogen 8 mg/dl (7-17); Calcium 8.9 mg/dl (8.4-10.2); Carbon Dioxide 22 mmol/L (22.0-30.0); Chloride 105 mmol/L (98-107); Creatinine Clearance Estimated 235 mL/min (50-200); Estimated Glomerular Filt Rate 154 ml/min (>60); GFR (African American) 187 ML/MIN (>60); Glucose 87 mg/dl (74-100); Potassium 3.8 mmoL/L (3.5-5.1); Sodium 134 mmol/L (136-145); Total Protein,Serum 6.9 g/dl (6.3-8.2)
[2020-02-15 12:31] LABS: Bacteria,Urine 1+ /lpf
[2020-02-15 13:14] LABS: HCG,Quantitative 20386 mIU/ml (0-5.42)
== END 2020-02-15 15:14 | disposition home or self-care (01) ==
PROVIDERS: Emergency Provider Emergency Medicine; PCP Family Medicine
DX: R55 Syncope and collapse (principal); O23.12 Infections of bladder in pregnancy, second trimester; N30.00 Acute cystitis without hematuria; Z3A.18 18 weeks gestation of pregnancy; F41.8 Other specified anxiety disorders
CPT/HCPCS: 80053; 81001; 84702; 85025; 87086; 96374; 99284; J2405

== ENCOUNTER → 2020-02-28 07:55 | Outpatient (CLI) | payer OTHER, MEDICAID, SELFPAY ==
--- NOTE | 2020-02-28 08:02 | US_ITS ---
PROCEDURE: US OB /MATERNAL DETAIL CLINICAL INDICATION: US OB Complete Anatomy exam COMPARISON: US US OB TRANSVAGINAL from 12/06/2019 FINDINGS: There is a single live fetus which is in cephalic presentation. The placenta is anterior and grade 1. The cervix appears closed and measures 3.5 cm. Complete survey performed and was unremarkable on the submitted images as in PACS. No discrete anomalies identified on survey imaging by technologist. Active fetus. Three-vessel cord with satisfactory umbilical cord insertion. 4- chamber heart noted. Survey of brain & ventricles Unremarkable. Face and neck survey unremarkable. Diaphragm and chest views unremarkable. Abdomen: Both kidneys noted and unremarkable. Stomach noted and satisfactory. Spine: Survey of the spine satisfactory with no anomalies identified nor imaged. Both arms and legs noted. Amniotic Fluid: Adequate. Maternal adnexa: No significant findings. Measurements: Average ultrasound age 20weeks 2days. Gestational Age 20weeks 1day Estimated due date by ultrasound age 0407/15/2020. Estimated weight 345g BPD = 20weeks 2days OFD = 20weeks 2days HC = 19weeks 4days AC = 20weeks 4days FL = 20weeks 2days Growth Percentile= 55percent% Heart Rate = 142bpm Cerebellum = 20weeks 4days, 2.01cm Humerus = 20weeks 3days, 3.11cm HC/AC is 1.10 CI is 0.79 FL/BPD is 0.70 FL/AC is 0.22 IMPRESSION: Live IUP with an average ultrasound age of 20 weeks and 1 day. No obvious anomalies. Please see above for detail. Dictated by: Dilshad Herrera MD 02/29/2020 13:15 Dilshad Herrera MD in [facility] 02/29/2020 13:15
== END ==
PROVIDERS: PCP Family Medicine; Visit Provider Obstetrics & Gynecology
DX: Z36.0 Encounter for antenatal screening for chromosomal anomalies (principal)
CPT/HCPCS: 76811

== ENCOUNTER → 2020-06-12 10:20 | Outpatient (CLI) | payer OTHER, SELFPAY ==
[2020-06-12 11:55] LABS: Collection Time,Urine 24 hours; Total Volume,Urine 2200 mL (600-1600)
[2020-06-12 12:20] LABS: Patient Height,Urine 63 inches; Patient Weight,Urine 235 lbs
[2020-06-12 14:31] LABS: Total Protein 24 Hour,Urine 264 mg/24 hr (40-90)
[2020-06-12 14:32] LABS: Creatinine 24 Hour,Urine 1760 mg/24hr (630-2500)
[2020-06-12 14:33] LABS: Creatinine Clearance Urine 204.9 mL/min (25-115); Creatinine,Urine Random 80 mg/dL (Not Estab.)
== END ==
PROVIDERS: Visit Provider Obstetrics & Gynecology
DX: Z34.90 Encounter for supervision of normal pregnancy, unspecified, unspecified trimester (principal)
CPT/HCPCS: 36415; 82575; 84155

== ENCOUNTER → 2020-06-14 13:22 | Outpatient (CLI) | payer OTHER, SELFPAY ==
--- NOTE | 2020-06-14 13:22 | US_ITS ---
PROCEDURE: US OB BIOPHYSICAL PROFILE CLINICAL INDICATION: BPP, Growth PIO Borderline preeclampsia TECHNIQUE: Transabdominal imaging FINDINGS: There is a single live fetus which is in cephalic presentation. The cervix is closed and measures nearly 4 cm. The placenta is anterior and grade 1. The following parameters are obtained: Average ultrasound age is Average 36weeks 6days Estimated due date by ultrasound is 07/06/2020. Estimated weight is 3,019g. This is 83 percentile BPD: 36weeks 3days OFD: HC: 38weeks 1day AC: 37weeks 4days FL: 34weeks 5days heart rate: 147bpm bpm. HC/AC: 0.99 Cephalic index: 0.75 FL/BPD: 0.75 FL/AC: 0.2 HC/AC: 0.99 Cephalic index: 0.75 FL/BPD: 0.75 FL/AC: 0.2 Amniotic fluid index: 15.3cm Qualitative AFV: 2 breathing movements: 2 Gross body movements: 2 Tone: 2 Biophysical profile score: 8 IMPRESSION: There is a single live fetus present in cephalic presentation. Average ultrasound age 36 weeks 6 days with an estimated weight 3119 g which is 83 percentile. Amniotic fluid index normal at 15 cm. Biophysical profile 8 of 8 Dictated by: Dilshad Herrera MD 06/14/2020 16:52 Dilshad Herrera MD in [facility] 06/14/2020 16:52
== END ==
PROVIDERS: PCP Family Medicine; Visit Provider Obstetrics & Gynecology
DX: Z34.90 Encounter for supervision of normal pregnancy, unspecified, unspecified trimester (principal); O13.9 Gestational [pregnancy-induced] hypertension without significant proteinuria, unspecified trimester; Z3A.35 35 weeks gestation of pregnancy
CPT/HCPCS: 76816; 76819

== ENCOUNTER → 2020-06-15 17:04 | Outpatient (CLI) | payer OTHER, SELFPAY | PROVIDERS: Visit Provider Obstetrics & Gynecology | DX: Z34.90 Encounter for supervision of normal pregnancy, unspecified, unspecified trimester (principal) | CPT/HCPCS: 86403 ==

== ENCOUNTER 2020-06-21 11:51 | Outpatient (CLI) | payer OTHER, SELFPAY ==
[2020-06-21 12:25] VITALS: BMI 49.2
[2020-06-21 13:00] VITALS: BMI 42.1
[2020-06-21 13:09] LABS: Microscopic, Urine URINE MICROSCOPIC (MICROSCOPIC)
[2020-06-21 13:16] LABS: Appearance,Urine CLEAR (Clear); Bilirubin,Urine Negative (Negative); Blood, Urine Negative (Negative); Color,Urine YELLOW (Yellow); Glucose,Urine (UA) Negative (Negative); Ketones,Urine Negative (Negative); Leukocyte Esterase,Urine TRACE (Negative); Nitrate,Urine Negative (Negative); Protein,Urine Negative (Negative); Specific Gravity, Urine 1.015 (1.005-1.030); Urobilinogen,Urine 0.2 EU/dl (0.2)
[2020-06-21 13:19] LABS: Basophils % 0.1 % (0.1-2.0); Eosinophils # 0.1 K/mm3 (0.0-0.4); Eosinophils % 0.8 % (0.1-12.0); Hematocrit 35.1 % (37.0-47.0); Lymphocytes # 1.7 K/mm3 (0.7-4.5); Lymphocytes % 16.8 % (10-50); Mean Corpuscular HGB Conc 34.3 g/dL (31.8-35.4); Mean Corpuscular Hemoglobin 28.2 pg (27.0-31.2); Mean Corpuscular Volume 82.3 fl (81-99); Mean Platelet Volume 8.4 fl (7.4-10.4); Monocytes # 0.5 K/mm3 (0.1-1.0); Monocytes % 4.6 % (1.7-9.3); Neutrophils # 7.7 K/mm3 (1.8-7.8); Neutrophils % 77.7 % (37.0-80.0); Platelet Count 195 K/mm3 (142-424); Red Blood Count 4.27 M/mm3 (4.20-5.40); Red Cell Distribution Width 13.7 % (11.5-17.5); White Blood Count 9.9 K/mm3 (4.8-10.8)
[2020-06-21 13:24] LABS: Barbiturates Screen,Urine Negative ng/ml (<200)
[2020-06-21 13:25] LABS: Benzodiazepines Screen,Urine Negative ng/ml (<200)
[2020-06-21 13:26] LABS: Amphetamine/Metha Screen,Urine Negative ng/ml (<1000); Cocaine Screen,Urine Negative ng/ml (<300)
[2020-06-21 13:27] LABS: Methadone Screen,Urine Negative ng/ml (<300)
[2020-06-21 13:28] LABS: Cannabinoid Screen,Urine Negative ng/ml (<50); Opiate Screen,Urine Negative ng/ml (<300)
[2020-06-21 13:29] LABS: Phencyclidine Screen,Urine Negative ng/ml (<25)
[2020-06-21 13:34] LABS: D-Dimer 0.93 ug/mL (0.0-0.5)
[2020-06-21 13:42] LABS: Alanine Aminotransferase 12 U/L (12-78); Anion Gap 10.6 mEq/L (5-15); Aspartate Amino Transferase 22 U/L (14-36); Blood Urea Nitrogen 6 mg/dl (7-17); Calcium 8.9 mg/dl (8.4-10.2); Carbon Dioxide 24 mmol/L (22.0-30.0); Chloride 106 mmol/L (98-107); Creatinine Clearance Estimated 181 mL/min (50-200); Estimated Glomerular Filt Rate 198 ml/min (>60); GFR (African American) 239 ML/MIN (>60); Glucose 83 mg/dl (74-100); Potassium 4.6 mmoL/L (3.5-5.1); Sodium 136 mmol/L (136-145); Uric Acid 4.2 mg/dl (2.5-6.2)
[2020-06-21 14:10] LABS: Activated Partial Thrombo Time 26.3 seconds (22.8-30.6); INR 0.92 (0.9-1.1); Prothrombin Time 10.9 seconds (10.1-12.5)
[2020-06-21 15:11] LABS: Fibrinogen 467 mg/dL (229.9-363.5)
== END 2020-06-21 15:30 | disposition home or self-care (01) ==
LOC: OBOUT 11:54 → OB 12:42 → OBOUT 06-22 06:52
PROVIDERS: PCP Family Medicine; Visit Provider Obstetrics & Gynecology
DX: O12.03 Gestational edema, third trimester (principal); Z3A.35 35 weeks gestation of pregnancy; R06.02 Shortness of breath
CPT/HCPCS: 36415; 59025; 80048; 80305; 81001; 84450; 84460; 84550; 85025; 85378; 85384; 85610; 85730; G0378; G0463

== ENCOUNTER 2020-06-27 10:49 | Outpatient (CLI) | payer OTHER, SELFPAY ==
[2020-06-27 11:00] VITALS: BMI 43.2
[2020-06-27 11:11] LABS: Microscopic, Urine URINE MICROSCOPIC (MICROSCOPIC)
[2020-06-27 11:15] VITALS: BP 142/70; PULSE 92; RESP 18; TEMP 36.9; O2SAT 95; BMI 43.2
[2020-06-27 11:18] LABS: Appearance,Urine CLEAR (Clear); Bilirubin,Urine Negative (Negative); Blood, Urine Negative (Negative); Color,Urine YELLOW (Yellow); Glucose,Urine (UA) Negative (Negative); Ketones,Urine Negative (Negative); Leukocyte Esterase,Urine 1+ (Negative); Nitrate,Urine Negative (Negative); PH,Urine 7.5 (5.0-8.5); Protein,Urine Negative (Negative); Specific Gravity, Urine 1.015 (1.005-1.030); Urobilinogen,Urine 0.2 EU/dl (0.2)
[2020-06-27 11:29] LABS: Bacteria,Urine 1+ /lpf
[2020-06-27 11:36] LABS: Amphetamine/Metha Screen,Urine Negative ng/ml (<1000)
[2020-06-27 11:36] LABS: Basophils % 0.2 % (0.1-2.0); Eosinophils # 0.1 K/mm3 (0.0-0.4); Eosinophils % 1.3 % (0.1-12.0); Hematocrit 34.2 % (37.0-47.0); Lymphocytes # 1.5 K/mm3 (0.7-4.5); Lymphocytes % 16.9 % (10-50); Mean Corpuscular HGB Conc 35.2 g/dL (31.8-35.4); Mean Corpuscular Hemoglobin 28.6 pg (27.0-31.2); Mean Corpuscular Volume 81.1 fl (81-99); Mean Platelet Volume 9.4 fl (7.4-10.4); Monocytes # 0.4 K/mm3 (0.1-1.0); Monocytes % 4.3 % (1.7-9.3); Neutrophils # 6.8 K/mm3 (1.8-7.8); Neutrophils % 77.3 % (37.0-80.0); Platelet Count 198 K/mm3 (142-424); Red Blood Count 4.22 M/mm3 (4.20-5.40); Red Cell Distribution Width 13.5 % (11.5-17.5); White Blood Count 8.8 K/mm3 (4.8-10.8)
[2020-06-27 11:37] LABS: Barbiturates Screen,Urine Negative ng/ml (<200); Benzodiazepines Screen,Urine Negative ng/ml (<200)
[2020-06-27 11:40] LABS: Cannabinoid Screen,Urine Negative ng/ml (<50); Cocaine Screen,Urine Negative ng/ml (<300)
[2020-06-27 11:41] LABS: Methadone Screen,Urine Negative ng/ml (<300)
[2020-06-27 11:42] LABS: Opiate Screen,Urine Negative ng/ml (<300); Phencyclidine Screen,Urine Negative ng/ml (<25)
[2020-06-27 12:01] LABS: Anion Gap 10.6 mEq/L (5-15); Blood Urea Nitrogen 4 mg/dl (7-17); Calcium 8.5 mg/dl (8.4-10.2); Carbon Dioxide 20 mmol/L (22.0-30.0); Chloride 108 mmol/L (98-107); Creatinine Clearance Estimated 181 mL/min (50-200); Estimated Glomerular Filt Rate 198 ml/min (>60); GFR (African American) 239 ML/MIN (>60); Glucose 93 mg/dl (74-100); Potassium 3.6 mmoL/L (3.5-5.1); Sodium 135 mmol/L (136-145)
[2020-06-27 12:21] LABS: D-Dimer < 0.40 ug/mL (0.0-0.5); INR 0.92 (0.9-1.1); Prothrombin Time 10.9 seconds (10.1-12.5)
[2020-06-27 12:22] LABS: Activated Partial Thrombo Time 26.6 seconds (22.8-30.6)
[2020-06-27 13:01] LABS: Alanine Aminotransferase 15 U/L (12-78); Aspartate Amino Transferase 22 U/L (14-36); Uric Acid 4.5 mg/dl (2.5-6.2)
[2020-06-27 13:53] LABS: Fibrinogen 359 mg/dL (229.9-363.5)
== END 2020-06-27 12:32 | disposition home or self-care (01) ==
LOC: OBOUT 10:54 → OB 10:54
PROVIDERS: PCP Family Medicine; Visit Provider Nurse Practitioner Obstetrics & Gynecology
DX: O47.03 False labor before 37 completed weeks of gestation, third trimester (principal); O12.03 Gestational edema, third trimester; Z3A.37 37 weeks gestation of pregnancy
CPT/HCPCS: 36415; 59025; 80048; 80305; 81001; 84450; 84460; 84550; 85025; 85378; 85384; 85610; 85730; 87086; G0463

== ENCOUNTER → 2020-07-02 09:25 | Outpatient (CLI) | payer OTHER, SELFPAY | PROVIDERS: PCP Family Medicine; Visit Provider Obstetrics & Gynecology | DX: Z01.818 Encounter for other preprocedural examination (principal); Z11.52 Encounter for screening for COVID-19 | CPT/HCPCS: U0003 ==

== ENCOUNTER 2020-07-03 16:27 | Inpatient (IN) | payer OTHER, SELFPAY ==
[2020-07-03 16:05] VITALS: BMI 33.5
[2020-07-03 17:00] VITALS: BP 124/84; PULSE 100; RESP 20; TEMP 36.9; O2SAT 97; BMI 42.7
[2020-07-03 17:15] LABS: Basophils % 0.1 % (0.1-2.0); Eosinophils # 0.1 K/mm3 (0.0-0.4); Eosinophils % 1.1 % (0.1-12.0); Hematocrit 33.4 % (37.0-47.0); Hemoglobin 11.8 g/dL (12.2-16.2); Lymphocytes # 1.4 K/mm3 (0.7-4.5); Lymphocytes % 13.6 % (10-50); Mean Corpuscular HGB Conc 35.2 g/dL (31.8-35.4); Mean Corpuscular Hemoglobin 28.4 pg (27.0-31.2); Mean Corpuscular Volume 80.8 fl (81-99); Monocytes # 0.5 K/mm3 (0.1-1.0); Monocytes % 4.5 % (1.7-9.3); Neutrophils # 8.2 K/mm3 (1.8-7.8); Neutrophils % 80.7 % (37.0-80.0); Platelet Count 190 K/mm3 (142-424); Red Blood Count 4.14 M/mm3 (4.20-5.40); Red Cell Distribution Width 13.5 % (11.5-17.5); White Blood Count 10.2 K/mm3 (4.8-10.8)
[2020-07-03 20:00] VITALS: BP 141/83; PULSE 81; RESP 18; TEMP 36.6; O2SAT 98
[2020-07-03 21:51] LABS: Microscopic, Urine URINE MICROSCOPIC (MICROSCOPIC)
[2020-07-03 21:54] LABS: Appearance,Urine CLEAR (Clear); Bilirubin,Urine Negative (Negative); Blood, Urine Negative (Negative); Color,Urine YELLOW (Yellow); Glucose,Urine (UA) Negative (Negative); Ketones,Urine Negative (Negative); Leukocyte Esterase,Urine Negative (Negative); Nitrate,Urine Negative (Negative); Protein,Urine Negative (Negative); Specific Gravity, Urine >= 1.030 (1.005-1.030); Urobilinogen,Urine 0.2 EU/dl (0.2)
[2020-07-03 22:06] LABS: Amphetamine/Metha Screen,Urine Negative ng/ml (<1000); Barbiturates Screen,Urine Negative ng/ml (<200)
[2020-07-03 22:07] LABS: Benzodiazepines Screen,Urine Negative ng/ml (<200)
[2020-07-03 22:08] LABS: Cannabinoid Screen,Urine Negative ng/ml (<50); Cocaine Screen,Urine Negative ng/ml (<300)
[2020-07-03 22:09] LABS: Methadone Screen,Urine Negative ng/ml (<300)
[2020-07-03 22:10] LABS: Opiate Screen,Urine Negative ng/ml (<300); Phencyclidine Screen,Urine Negative ng/ml (<25)
[2020-07-03 22:24] LABS: Bacteria,Urine 1+ /lpf
[2020-07-04] VITALS: BP 135/66; PULSE 80; RESP 18; TEMP 36.9; O2SAT 98
[2020-07-04 04:15] VITALS: BP 136/87; PULSE 86; RESP 18; TEMP 36.9; O2SAT 99
[2020-07-04 08:00] VITALS: BP 139/76; PULSE 68; RESP 18; TEMP 36.8; O2SAT 99
--- NOTE | 2020-07-04 08:21 | [facility].PHAINT ---
MEDICATION RECONCILIATION COMPLETED ON PATIENT USING EXTERNAL FILL HISTORY FROM PHARMACY AND LIST FROM TESTING TECH OFFICE. -LINA HALLD
--- NOTE | 2020-07-04 09:15 | HMH.OBAPHP ---
OB - H&P: HPI Antepartum - History of Present Illness Chief complaint: Induction of Labor History of present illness: 25 yo @ 38 04/30 admitted for IOL complicated by gestational hypertension in past few weeks Initially managed successfully with po labetalol but has required increasing dosage in past week and 24 hr urine protein just under 300mg, prompting induction of labor Irregular contractions; no leakage of fluid or vaginal bleeding Denies symptoms of preeclampsia Normal movement [facility] History I have reviewed the patient's past medical history: Yes Medical History: Denies:: Anxiety, Depression, Diabetes Mellitus Type 1, Hyperlipidemia, Hypertension, Migraine, MRSA, Seizures *Have you ever received a pneumonia vaccine?: No *Have you received a flu vaccine this season?: No Other Surgeries: Yes: No Previous Surgery. No: Amputation: No Fractures: No - *Social History Smoking Status: Former smoker Tobacco Type: cigarettes # Packs/Day (cigarettes): 1 Alcohol Intake: never Substance Use Type: denies use *Occupational Status:: unemployed Housing: house Household Members: spouse *Travel in the last 8 weeks: None - Psychiatric History Pschychiatric History:: Denies:: Anxiety, Depression Family Hx:: Cancer, Diabetes, Thyroid Disorder, Hyperlipidemia, Asthma Para: 1 Review of Systems - Review of Systems Review of systems:: pertinent systems reviewed and negative unless documented below - Constitutional Denies fever(s) - Eyes Denies double vision, Denies floaters - *Respiratory Denies cough - *Gastrointestinal Denies abdominal pain, Denies nausea, Denies vomiting - *Genitourinary Denies abnormal vaginal bleeding - *Musculoskeletal Reports back pain - Integumentary/Breasts Reports breast skin changes - *Neurologic Denies headache(s), Denies other visual disturbances - Psychiatric Reports depression (stable on zoloft) Meds Home Medications Medication Instructions Recorded Confirmed Type ondansetron 4 mg disintegrating 4 mg PO Q4H PRN #30 tab 12/10/19 07/03/20 Rx tablet prenat.vits,leonarda,[id number] 1 tab PO DAILY 12/10/19 07/03/20 History Sertraline HCl [Zoloft] 100 mg PO DAILY 07/03/20 07/03/20 History Labetalol HCl 100 mg PO BID 07/04/20 07/04/20 History Allergies Allergy/AdvReac Type Severity Reaction Status Date / Time No Known Allergies Allergy Verified 06/22/20 15:04 OB - H&P: Exam - Physical Exam Vital signs: Temp Pulse Resp BP Pulse Ox 98.3 F 68 18 139/76 99 07/04/20 08:00 07/04/20 08:00 07/04/20 08:00 07/04/20 08:00 07/04/20 08:00 - Constitutional no acute distress - Routine HEENT Exam Head: Present: normocephalic, atraumatic Eye: Absent: conjunctival icterus, scleral injection ENT: Present: mucous membranes moist - Routine Neck Exam Present: supple - Routine Chest/Breast/Axilla Exam Chest wall: Absent: tenderness - Routine Respiratory Exam Present: CTA bilaterally. Absent: respiratory distress - Routine Cardiovascular Exam Present: RRR - Routine Abdominal Exam Present: soft. Absent: tenderness, distended - Routine Exam Comments: cervix: 2-3/25/-1 AROM with clear fluid IUPC placed without difficulty or complication - Routine Extremities Exam Present: edema (1+) - Routine Back/Spine/Pelvis Exam Back/Spine: Absent: CVA tenderness - Routine Skin Exam Absent: rash - Routine Neurological Exam Present: alert, oriented X3 - Routine Psychiatric Exam Present: normal affect OB - Results - Labs Labs: Short CBC 07/03/20 Range/Units 17:00 WBC 10.2 (4.8-10.8) K/mm3 Hgb 11.8 L (12.2-16.2) g/dL Hct 33.4 L (37.0-47.0) % Plt Count 190 (142-424) K/mm3 Urine 07/03/20 Range/Units 16:30 Urine Color Yellow (Yellow) Urine Appearance Clear (Clear) Urine pH 6.0 (5.0-8.5) Ur Specific [place] >= 1.030 (1.005-1.030) Urine Prot
--- NOTE | 2020-07-04 09:49 | HMH.ANESCL ---
[facility] Anesthesia Checklist - Patient Identification Patient Identification: Arm Band - Structural Data Admitted From: Inpatient Planned Operative Procedure/s: labor epidural Consent for Planned Operative Procedure(s) Verified: Yes Verified Documents: Surgical Consent, History and Physical - NPO Status Verified Time NPO: 00:00 - Additional verifications Anesthesia Reactions: No - Airway Assessment C-Spine Mobility Assessed: Yes TMJ Mobility Assessed: Yes Dentition: Good Dentition - Neurological Assessment Level of Consciousness: Awake, Alert - Anesthesia Plan Anesthesia Risk discussed: Yes Anesthesia Plan: Verified ASA Class: II Anesthesia Type: Epidural [facility] History I have reviewed the patient's past medical history: Yes Medical History: Denies:: Anxiety, Depression, Diabetes Mellitus Type 1, Hyperlipidemia, Hypertension, Migraine, MRSA, Seizures *Have you ever received a pneumonia vaccine?: No *Have you received a flu vaccine this season?: No Anesthesia experience/problems:: nac Other Surgeries: Yes: No Previous Surgery. No: Amputation: No Fractures: No - *Social History Smoking Status: Former smoker Tobacco Type: cigarettes # Packs/Day (cigarettes): 1 Alcohol Intake: never Substance Use Type: denies use *Occupational Status:: unemployed Housing: house Household Members: spouse *Travel in the last 8 weeks: None - Psychiatric History Pschychiatric History:: Denies:: Anxiety, Depression Family Hx:: Cancer, Diabetes, Thyroid Disorder, Hyperlipidemia, Asthma Para: 1
--- NOTE | 2020-07-04 12:14 | HMH.LABNOT ---
Labor Note - Subjective: Date: 07/04/20 Time: 12:14 Comment:: regular contractions comfortable with epidural - Objective: Cervical Dilation:: 3-4 Effacement:: 25% Station: -1 Membranes: artificially ruptured - Fetus: monitoring type:: Internal and External - Assessment: Patient Problems: All Active Problems 38 weeks gestation of (Acute) Anemia affecting (Acute) Near syncope (Acute) LGA (large for gestational age) fetus (Acute) Gestational hypertension (Acute) Anxiety and depression (Acute) History of depression (Acute) Nausea and vomiting during (Acute) (Acute) Viral syndrome (Acute) Flank pain (Acute) UTI (urinary tract infection) (Acute) - Plan: Comment:: Continue pitocin augmentation anticipate
[2020-07-04 16:00] VITALS: BP 130/77; PULSE 70; RESP 18; TEMP 36.8; O2SAT 99
--- NOTE | 2020-07-04 16:45 | HMH.LABNOT ---
Labor Note - Subjective: Date: 07/04/20 Time: 16:45 Comment:: Pitocin discontinued for 30 minutes to allow uterus to rest, and began again at 6mU/min patient comfortable with epidural cervix with minimal change, now 50/-1 caput noted on vertex of fetus - Objective: Cervical Dilation:: 4 Effacement:: 50% Station: -1 - Fetus: monitoring type:: Internal and External - Assessment: Patient Problems: All Active Problems 38 weeks gestation of (Acute) Anemia affecting (Acute) Near syncope (Acute) LGA (large for gestational age) fetus (Acute) Gestational hypertension (Acute) Anxiety and depression (Acute) History of depression (Acute) Nausea and vomiting during (Acute) (Acute) Viral syndrome (Acute) Flank pain (Acute) UTI (urinary tract infection) (Acute) - Plan: Comment:: Slow and insufficient progress with labor s/p cytotec cervical ripening with pitocin x 9 hours Pitocin discontinued x 30 minutes and restarted at 1/2 previous rate Repositioned into high fowlers and will recheck cervix in 1 hour
[2020-07-04 20:08] VITALS: BP 114/55; PULSE 67; RESP 18; TEMP 37.1; O2SAT 98
--- NOTE | 2020-07-04 20:16 | HMH.LABNOT ---
Labor Note - Subjective: Date: 07/04/20 Time: 20:16 Comment:: slow but continued progress + bloody show comfortable with epidural but feeling more pressure - Objective: Cervical Dilation:: 7-8 Effacement:: 80% Station: 0 Comment:: baseline 150s normal variability + accelerations intermittent early decelerations and occasional late decelerations overall reassuring - Fetus: monitoring type:: Internal and External - Assessment: Labor progressing?: Yes Patient Problems: All Active Problems 38 weeks gestation of (Acute) Anemia affecting (Acute) Near syncope (Acute) LGA (large for gestational age) fetus (Acute) Gestational hypertension (Acute) Anxiety and depression (Acute) History of depression (Acute) Nausea and vomiting during (Acute) (Acute) Viral syndrome (Acute) Flank pain (Acute) UTI (urinary tract infection) (Acute) - Plan: Comment:: positioned into high fowlers position to labor down re-assess in 30 minutes
--- NOTE | 2020-07-04 21:41 | HMH.DN ---
- Delivery Note Delivery Date:: 07/04/20 Delivery Time:: 21:11 Anesthesia Type: Epidural Was labor medically induced?: Yes Induction method: per misoprostol protocol Gestational age (weeks): 38 Infant delivered prior to 39 weeks?: Yes Justification for early elective delivery:: Gestational Hypertension Infant Gender: Male at 1 minute: 6 at 5 minutes: 8 LAC or MLE?: LAC Delivery Procedure:: Spontaneous vaginal delivery of liveborn male over intact perineum. Delivery uncomplicated No nuchal cord; no shoulder dystocia with delivery Infant placed in BRITTA with mother immediately after umbilical cord clamped/cut, with standard nursing assessment performed Apgars: 6 & 8 Placenta spontaneously expressed and examined; noted to be complete/intact. Vulva, vagina, and cervix inspected; 1st degree laceration repaired with 2-0 vicryl EBL: 300 cc All sponge/needle/instrument counts correct at conclusion of procedure Disposition: Mom/baby stable to recovery in LDRP Laceration:: vaginal (1st degree) Placental Delivery Description: Spontaneous
[2020-07-05 00:08] VITALS: BP 135/65; PULSE 79; RESP 18; TEMP 36.8; O2SAT 99
[2020-07-05 04:05] VITALS: BP 140/64; PULSE 79; RESP 18; TEMP 37; O2SAT 97
[2020-07-05 07:31] LABS: Hematocrit 34.1 % (37.0-47.0); Hemoglobin 11.7 g/dL (12.2-16.2)
[2020-07-05 08:00] VITALS: BP 141/74; PULSE 83; RESP 20; TEMP 36.7; O2SAT 96
--- NOTE | 2020-07-05 11:44 | P.PN_ITS ---
Internal Medicine - PN: Subj *Date: 07/05/20 *Time: 11:44 Interval history: PPD #1 no unusual complaints Ambulating and voiding without difficulty tolerating regular diet lochia appropriate and hemoglobin stable Exam Vital signs and Labs for Last 24 Hours: Temp Pulse Resp BP Pulse Ox 98.1 F 83 20 141/74 H 96 07/05/20 08:00 07/05/20 08:00 07/05/20 08:00 07/05/20 08:00 07/05/20 08:00 Laboratory Results - last 24 hr 07/05/20 06:42: Hgb 11.7 L, Hct 34.1 L I & O for Last 24 hours: Intake & Output 07/02/20 07/03/20 07/04/20 07/05/20 11:59 11:59 11:59 11:59 Output Total 650 / 650 Balance -650 / -650 Weight 241 lb Narrative: CONSTITUTIONAL: no acute distress HEENT: mucous membranes moist PULMONARY: breathing unlabored without audible wheezes CV: no tachycardia or visible JVD; normal LE peripheral pulses ABD: soft, NT/ND, no guarding : fundus firm at/below umbilicus SKIN: no visible rash or lesions EXT: 1+ edema LEs NEURO: alert/oriented, no altered mental status PSYCH: appropriate mood and demeanor without anxiety/depression Assessment and Plan (1) 38 weeks gestation of Status: Acute Category: Medical Code(s): Z3A.38 - 38 weeks gestation of (2) Gestational hypertension Status: Acute Category: Medical Code(s): O13.9 - Gestational [- induced] hypertension without significant proteinuria, unspecified trimester (3) Anemia affecting Status: Acute Category: Medical Code(s): O99.019 - Anemia complicating , unspecified trimester (4) Anxiety and depression Status: Acute Category: Medical Code(s): F41.9 - Anxiety disorder, unspecified; F32.9 - Major depressive disorder, single episode, unspecified (5) History of depression Status: Acute Category: Medical Code(s): Z87.59 - Personal history of other complications of , childbirth and the puerperium; Z86.59 - Personal history of other mental and behavioral disorders - Assessment and plan all Dx Assessment and Plan for all problems:: routine care anticipate discharge home tomorrow
[2020-07-05 15:30] VITALS: BP 135/71; PULSE 90; RESP 18; TEMP 36.8; O2SAT 99
[2020-07-05 20:14] VITALS: BP 136/67; PULSE 80; RESP 18; TEMP 36.7; O2SAT 97
[2020-07-06 04:00] VITALS: BP 127/66; PULSE 70; RESP 16; TEMP 36.5; O2SAT 98
[2020-07-06 08:00] VITALS: BP 123/63; PULSE 82; RESP 18; TEMP 36.7; O2SAT 98
--- NOTE | 2020-07-06 10:25 | P.DS_ITS ---
General - General Admission date:: 07/03/20 Discharge date: 07/06/20 HPI HPI: IOL @ 38 wks for gestational hypertension Uncomplicated vaginal delivery course uneventful Ambulating and voiding without difficulty Tolerating regular diet Discharged home on PPD #2 Declines pain medication with discharge Hospital Course Rhogam Administration: Not Indicated Objective Vital signs: Temp Pulse Resp BP Pulse Ox 98.1 F 82 18 123/63 98 07/06/20 08:00 07/06/20 08:00 07/06/20 08:00 07/06/20 08:00 07/06/20 08:00 Narrative: CONSTITUTIONAL: no acute distress HEENT: mucous membranes moist PULMONARY: breathing unlabored without audible wheezes CV: no tachycardia or visible JVD; normal LE peripheral pulses ABD: soft, NT/ND, no guarding : fundus firm at/below umbilicus SKIN: no visible rash or lesions EXT: 1+ edema LEs NEURO: alert/oriented, no altered mental status PSYCH: appropriate mood and demeanor DS: Diagnosis - Discharge Diagnosis (1) 38 weeks gestation of Status: Acute (2) Gestational hypertension Status: Acute (3) Anemia affecting Status: Acute (4) Anxiety and depression Status: Acute (5) History of depression Status: Acute (6) Vaginal delivery Status: Acute Discharge Plan - Patient Discharge Instructions Additional Instructions: * Nothing in the vagina for 6 weeks * No heavy lifting * No strenuous activity. Patient Instructions: Depression, Hemorrhage, DI for Labor and Delivery, Vaginal , DI for Pre-eclampsia, [facility] Post Discha rge Instructions, Preventing the Spread of Coronavirus Discharge Instructions - Follow up Plan Follow up with: Mitali Sandra MD [Staff Physician] - 08/17/20 9:30 am Home Medications: Home Medications Medication Instructions Recorded Confirmed Type ondansetron 4 mg disintegrating 4 mg PO Q4H PRN #30 tab 12/10/19 07/03/20 Rx tablet prenat.vits,leonarda,[id number] 1 tab PO DAILY 12/10/19 07/03/20 History Sertraline HCl [Zoloft] 100 mg PO DAILY 07/03/20 07/03/20 History Labetalol HCl 100 mg PO BID 07/04/20 07/04/20 History Prescriptions/Medication Reconciliation: No Action prenat.vits,leonarda,[id number] 1 tab PO DAILY ondansetron 4 mg disintegrating tablet 4 mg PO Q4H PRN #30 tab PRN Reason: nausea and vomiting Sertraline HCl [Zoloft] 100 mg PO DAILY Labetalol HCl 100 mg PO BID - Problem Reconciliation Problems Reviewed?: Yes
== END 2020-07-06 16:00 | disposition home or self-care (01) | DRG 807 ==
LOC: OB 16:29
PROVIDERS: Admitting Provider Obstetrics & Gynecology; PCP Family Medicine; Visit Provider Obstetrics & Gynecology
DX: O13.3 Gestational [pregnancy-induced] hypertension without significant proteinuria, third trimester (principal); Z37.0 Single live birth; O99.02 Anemia complicating childbirth; O70.0 First degree perineal laceration during delivery; Z3A.38 38 weeks gestation of pregnancy; D64.9 Anemia, unspecified
CPT/HCPCS: 59409; 59025; 80305; 81001; 85014; 85018; 85025; 86850; 94761; C1758; G0283

== ENCOUNTER → 2020-10-18 17:53 | Outpatient (CLI) | payer OTHER, SELFPAY ==
[2020-10-18 20:10] LABS: HCG,Quantitative < 2 mIU/ml (0-5.42)
== END ==
PROVIDERS: Visit Provider Obstetrics & Gynecology
DX: Z30.9 Encounter for contraceptive management, unspecified (principal)
CPT/HCPCS: 36415; 84702

== ENCOUNTER → 2021-10-30 17:33 | Outpatient (CLI) | payer OTHER, SELFPAY ==
[2021-10-30 18:11] LABS: Basophils # 0.1 K/mm3 (0-0.2); Basophils % 0.8 % (0.1-2.0); Eosinophils # 0.2 K/mm3 (0.0-0.4); Eosinophils % 1.4 % (0.1-12.0); Hematocrit 46.9 % (37.0-47.0); Hemoglobin 14.9 g/dL (12.2-16.2); Lymphocytes # 1.9 K/mm3 (0.7-4.5); Lymphocytes % 15.2 % (10-50); Mean Corpuscular HGB Conc 31.7 g/dL (31.8-35.4); Mean Corpuscular Hemoglobin 28.5 pg (27.0-31.2); Mean Corpuscular Volume 89.8 fl (81-99); Mean Platelet Volume 8.8 fl (7.4-10.4); Monocytes # 0.4 K/mm3 (0.1-1.0); Monocytes % 3.4 % (1.7-9.3); Neutrophils % 79.2 % (37.0-80.0); Platelet Count 306 K/mm3 (142-424); Red Blood Count 5.22 M/mm3 (4.20-5.40); Red Cell Distribution Width 13.2 % (11.5-17.5); White Blood Count 12.6 K/mm3 (4.8-10.8)
[2021-10-30 18:47] LABS: Erythrocyte Sedimentation Rate 3 mm/hr (0-20)
[2021-10-30 18:48] LABS: Alanine Aminotransferase 15 U/L (12-78); Albumin Level 4.6 g/dl (3.5-5.0); Albumin/Globulin Ratio 1.6 (1.1-1.8); Alkaline Phosphatase 76 U/L (38-126); Anion Gap 10.8 mEq/L (5-15); Aspartate Amino Transferase 28 U/L (14-36); Bilirubin,Total 0.4 mg/dl (0.2-1.3); Blood Urea Nitrogen 7 mg/dl (7-17); Calcium 9.6 mg/dl (8.4-10.2); Carbon Dioxide 24 mmol/L (22.0-30.0); Chloride 108 mmol/L (98-107); Creatine Kinase 50 U/L (30-135); Estimated Glomerular Filt Rate 103 ml/min (>60); GFR (African American) 124 ML/MIN (>60); Globulin 2.9 g/dL (1.3-3.2); Glucose 95 mg/dl (74-100); Potassium 3.8 mmoL/L (3.5-5.1); Sodium 139 mmol/L (136-145); Total Protein,Serum 7.5 g/dl (6.3-8.2); Uric Acid 4.2 mg/dl (2.5-6.2)
[2021-10-30 19:19] LABS: Thyroid Stimulating Hormone 1.14 uIU/mL (0.465-4.68)
[2021-10-30 19:46] LABS: Hemoglobin A1C 4.9 % (4.0-6.0)
[2021-11-01 08:15] LABS: RA Latex Turbid. <10.0 IU/mL (<14.0)
[2021-11-01 12:11] LABS: Antinuclear Antibodies, IFA Negative (.)
== END ==
LOC: LAB 17:36
PROVIDERS: PCP Nurse Practitioner Family; Visit Provider Nurse Practitioner Family
DX: M25.50 Pain in unspecified joint (principal); M79.10 Myalgia, unspecified site; R53.83 Other fatigue; R63.4 Abnormal weight loss; Z13.1 Encounter for screening for diabetes mellitus; Z79.899 Other long term (current) drug therapy
CPT/HCPCS: 36415; 80053; 82550; 83036; 84443; 84550; 85025; 85651; 86038; 86431

== ENCOUNTER 2021-11-02 03:09 | Emergency (ER) | payer OTHER, SELFPAY ==
[2021-11-02 03:28] VITALS: BP 139/84; PULSE 78; RESP 16; TEMP 36.8; O2SAT 95; BMI 30.1
[2021-11-02 03:29] VITALS: BMI 30.1
--- NOTE | 2021-11-02 03:29 | CT_ITS ---
PROCEDURE INFORMATION: Exam: CT Abdomen And Pelvis With Contrast Exam date and time: 11/02/2021 4:07 AM Age: 26 years old Clinical indication: Abdominal pain; Localized; Right lower quadrant (rlq); Additional info: Abd pain TECHNIQUE: Imaging protocol: Computed tomography of the abdomen and pelvis with contrast. Radiation optimization: All CT scans at this facility use at least one of these dose optimization techniques: automated exposure control; mA and/or kV adjustment per patient size (includes targeted exams where dose is matched to clinical indication); or iterative reconstruction. Contrast material: ISOVUE; Contrast volume: 75 ml; Contrast route: IV; COMPARISON: CT ABDOMEN PELVIS WO CON 03/29/2019 4:01 PM FINDINGS: Liver: Focal fatty infiltration along the falciform ligament. Gallbladder and bile ducts: Normal. No calcified stones. No ductal dilation. Pancreas: Normal. No ductal dilation. Spleen: Normal. No splenomegaly. Adrenal glands: Normal. No mass. Kidneys and ureters: See Reproductive finding. Stomach and bowel: Unremarkable. No obstruction. No mucosal thickening. Appendix: No evidence of appendicitis. Intraperitoneal space: Trace free fluid in the pelvis. Vasculature: Unremarkable. No abdominal aortic aneurysm. Lymph nodes: Unremarkable. No enlarged lymph nodes. Urinary bladder: Unremarkable as visualized. Reproductive: IUD is in place. Left renal cyst measures 2 cm. 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 Soft tissues: Unremarkable. IMPRESSION: No acute findings. COMMENTS: Consistent with the [employer]'s Incidental Findings Committee white paper (J Am Lizzy Radiol 2018): Any incidental renal lesion less than 1 cm or classified as too small to characterize, or any incidental cystic renal lesion characterized as simple-appearing, is likely benign. No follow-up imaging is recommended for these lesions per consensus recommendations based on imaging criteria.
[2021-11-02 03:52] LABS: Microscopic, Urine URINE MICROSCOPIC (MICROSCOPIC)
[2021-11-02 03:58] LABS: Basophils # 0.3 K/mm3 (0-0.2); Basophils % 1.8 % (0.1-2.0); Eosinophils # 0.3 K/mm3 (0.0-0.4); Eosinophils % 2.4 % (0.1-12.0); Lymphocytes # 3.2 K/mm3 (0.7-4.5); Lymphocytes % 23.1 % (10-50); Mean Corpuscular HGB Conc 32.7 g/dL (31.8-35.4); Mean Corpuscular Hemoglobin 28.7 pg (27.0-31.2); Mean Corpuscular Volume 87.7 fl (81-99); Mean Platelet Volume 10.5 fl (7.4-10.4); Monocytes # 0.6 K/mm3 (0.1-1.0); Monocytes % 4.3 % (1.7-9.3); Neutrophils # 9.6 K/mm3 (1.8-7.8); Neutrophils % 68.4 % (37.0-80.0); Platelet Count 347 K/mm3 (142-424); Red Blood Count 5.59 M/mm3 (4.20-5.40); Red Cell Distribution Width 13.1 % (11.5-17.5)
[2021-11-02 03:59] LABS: Appearance,Urine CLEAR (Clear); Bilirubin,Urine Negative (Negative); Blood, Urine TRACE-I (Negative); Color,Urine YELLOW (Yellow); Glucose,Urine (UA) Negative (Negative); Ketones,Urine Negative (Negative); Leukocyte Esterase,Urine Negative (Negative); Nitrate,Urine Negative (Negative); PH,Urine 7.5 (5.0-8.5); Protein,Urine Negative (Negative); Urobilinogen,Urine 0.2 EU/dl (0.2)
--- NOTE | 2021-11-02 04:00 | PC.NURSE ---
PT TO RADIOLOGY VIA WC AND TECH
[2021-11-02 04:03] LABS: Alanine Aminotransferase 17 U/L (12-78); Albumin Level 5.2 g/dl (3.5-5.0); Albumin/Globulin Ratio 1.5 (1.1-1.8); Alkaline Phosphatase 97 U/L (38-126); Ammonia < 9 umol/L (9-30); Amylase 60 U/L (30-110); Anion Gap 13.8 mEq/L (5-15); Aspartate Amino Transferase 26 U/L (14-36); Bilirubin,Total 0.4 mg/dl (0.2-1.3); Blood Urea Nitrogen 7 mg/dl (7-17); Calcium 10.4 mg/dl (8.4-10.2); Carbon Dioxide 24 mmol/L (22.0-30.0); Chloride 105 mmol/L (98-107); Creatinine Clearance Estimated 176 mL/min (50-200); Estimated Glomerular Filt Rate 123 ml/min (>60); GFR (African American) 149 ML/MIN (>60); Globulin 3.5 g/dL (1.3-3.2); Glucose 100 mg/dl (74-100); Lactic Acid 1.4 mmol/L (0.7-2.1); Lipase 62 U/L (23-300); Potassium 3.8 mmoL/L (3.5-5.1); Sodium 139 mmol/L (136-145); Total Protein,Serum 8.7 g/dl (6.3-8.2); Urine Pregnancy, HCG Qual. Negative (Negative)
[2021-11-02 04:07] LABS: Monoscreen (Rapid) Negative (Negative)
[2021-11-02 04:08] LABS: C-Reactive Protein 0.9 mg/L (0-4)
[2021-11-02 04:13] LABS: Bacteria,Urine 1+ /lpf; RBC,Urine Occasional #/hpf (0-3); WBC,Urine Occasional #/hpf (0-3)
--- NOTE | 2021-11-02 04:20 | PC.NURSE ---
PT RETURNS FROM RADIOLOGY. GIVEN A PILLOW AND BLANKET, DIMMED LIGHTS. CB IN REACH
[2021-11-02 04:24] LABS: Procalcitonin < 0.030 ng/mL (0.0-2.0)
--- NOTE | 2021-11-02 04:40 | PC.NURSE ---
rounded on pt. pt is pain free and medicated per MAR
[2021-11-02 05:00] VITALS: BP 144/80; PULSE 62; O2SAT 98
[2021-11-02 05:30] VITALS: BP 142/72; PULSE 57; O2SAT 98
--- NOTE | 2021-11-02 05:30 | PC.NURSE ---
PATIENT RESTING WITH EYES CLOSED. NO COMPLAINTS VOICED. NO NEEDS MADE KNOWN. AT BEDSIDE.
[2021-11-02 06:00] VITALS: BP 139/80; PULSE 58; O2SAT 99
--- NOTE | 2021-11-02 06:00 | PC.NURSE ---
Angy YOUNG in room updating pt on read status
[2021-11-02 06:31] VITALS: BP 112/57; PULSE 56; O2SAT 99
--- NOTE | 2021-11-02 06:46 | HMH.EDNVD ---
ED Disposition Clinical Impression: Abdominal pain Qualifiers: Abdominal location: right upper quadrant Qualified Code(s): R10.11 - Right upper quadrant pain Disposition: Home, Self-Care Condition on Discharge: Good Instructions: DI for Acute Abdominal Pain Additional Instructions: see pcp for follow up Referrals: Maria E Forte APRN [Primary Care Provider] - - Critical Care Critical Care Time: No Attestation: On 11/02/21, the high probability of a clinically significant, sudden or life threatening deterioration of the following system(s) required my full and direct attention, intervention and personal management. The time I documented below is in addition to time spent performing reported procedures but includes the following listed in this critical care notation. Medical Decision Making - Medical Records Medical records reviewed: Yes: I reviewed the patient's medical records. - Smith Inquiry Pt receiving controlled substance: No Vital Signs: 11/02/21 03:28 11/02/21 05:00 11/02/21 05:30 Temperature 98.2 F Temperature Source Oral Pulse Rate 62 57 L Pulse Rate [Right Brachial] 78 Respiratory Rate 16 Blood Pressure 144/80 H 142/72 H Blood Pressure [Right Arm] 139/84 Blood Pressure Mean 93 99 Blood Pressure Mean [Right Arm] 102 Blood Pressure Source [Right Arm] Automatic Cuff Blood Pressure Position [Right Arm] Sitting 02 Sat by Pulse Oximetry 95 98 98 Oxygen Delivery Method Room Air 11/02/21 06:00 11/02/21 06:31 Temperature Temperature Source Pulse Rate 58 L 56 L Pulse Rate [Right Brachial] Respiratory Rate Blood Pressure 139/80 112/57 L Blood Pressure [Right Arm] Blood Pressure Mean 100 75 Blood Pressure Mean [Right Arm] Blood Pressure Source [Right Arm] Blood Pressure Position [Right Arm] 02 Sat by Pulse Oximetry 99 99 Oxygen Delivery Method - Lab Data Lab results reviewed: Yes: I reviewed the patient's lab results. Lab Results 11/02/21 03:35: Urine Color Yellow, Urine Appearance Clear, Urine pH 7.5, Ur Specific [place] 1.010, Urine Protein Negative, Urine Glucose (UA) Negative, Urine Ketones Negative, Urine Blood Trace-i, Urine Nitrate Negative, Urine Bilirubin Negative, Urine Urobilinogen 0.2, Ur Leukocyte Esterase Negative, Urine RBC Occasional, Urine WBC Occasional, Ur Squamous Epith Cells 5-10, Urine Bacteria 1+ 11/02/21 03:35: WBC 14.0 H, RBC 5.59 H, Hgb 16.0, Hct 49.0 H, MCV 87.7, MCH 28.7, MCHC 32.7, RDW 13.1, Plt Count 347, MPV 10.5 H, Neut % (Auto) 68.4, Lymph % (Auto) 23.1, [place] % (Auto) 4.3, Eos % (Auto) 2.4, Baso % (Auto) 1.8, Neut # (Auto) 9.6 H, Lymph # (Auto) 3.2, [place] # (Auto) 0.6, Eos # (Auto) 0.3, Baso # (Auto) 0.3 H, ESR Cancelled 11/02/21 03:35: Urine HCG, Qual Negative 11/02/21 03:35: Sodium 139, Potassium 3.8, Chloride 105, Carbon Dioxide 24, Anion Gap 13.8, BUN 7, Creatinine 0.60, Estimated Creat Clear 176, Estimated GFR 123, Est GFR ( Amer) 149 D, Glucose 100, Calcium 10.4 H, Total Bilirubin 0.4, AST 26, ALT 17, Alkaline Phosphatase 97, C-Reactive Protein 0.9, Total Protein 8.7 H, Albumin 5.2 H, Globulin 3.5 H, Albumin/Globulin Ratio 1.5, Amylase 60, Lipase 62, Procalcitonin < 0.030 11/02/21 03:35: Monoscreen Negative 11/02/21 03:35: Lactate 1.4 11/02/21 03:35: Ammonia < 9 L Result diagrams: 11/02/21 03:35 11/02/21 03:35 Orders (Tests/Meds): ED MEDICATIONS Generic Name Dose Route Start Last Admin Trade Name Freq PRN Reason Stop Dose Admin Sodium Chloride 1,000 mls @ 999 mls/hr 11/02/21 03:45 11/02/21 04:08 Sod Chlor 0.9% 1000ml Bag IV 11/02/21 04:45 999 mls/hr .Q1H1M JERRY Administration Sodium Chloride 8 ml 11/02/21 03:31 Sodium Chloride 0.9% 10ml Vial IV 12/02/21 03:30 NEEDED PRN dilute pepcid Discontinued Medications Generic Name Dose Route Start Last Admin Trade Name Freq PRN Reason Stop Dose Admin Famotidine 20 mg 11/02/21 03:31 11/02/21 04:08 Famotidine 20mg/2ml
[2021-11-02 06:54] VITALS: BP 112/57; PULSE 82; RESP 17; TEMP 36.8; O2SAT 98
== END 2021-11-02 07:01 | disposition home or self-care (01) ==
PROVIDERS: Emergency Provider Emergency Medicine; PCP Nurse Practitioner Family
DX: R10.11 Right upper quadrant pain (principal); M54.9 Dorsalgia, unspecified; R53.81 Other malaise; M79.10 Myalgia, unspecified site; R51.9 Headache, unspecified; M25.50 Pain in unspecified joint; F32.A Depression, unspecified; F41.9 Anxiety disorder, unspecified; Z87.891 Personal history of nicotine dependence; Z83.438 Family history of other disorder of lipoprotein metabolism and other lipidemia; Z83.49 Family history of other endocrine, nutritional and metabolic diseases; Z83.3 Family history of diabetes mellitus; Z80.9 Family history of malignant neoplasm, unspecified; Z82.5 Family history of asthma and other chronic lower respiratory diseases
CPT/HCPCS: 74177; 80053; 81001; 81025; 82140; 82150; 83605; 83690; 84145; 85025; 86140; 86318; 87040; 96361; 96374; 96375; 99285; Q9967

== ENCOUNTER 2022-06-22 19:11 | Emergency (ER) | payer OTHER, SELFPAY ==
[2022-06-22 19:25] VITALS: BP 138/74; PULSE 139; RESP 20; TEMP 37.8; O2SAT 100; BMI 30.1
[2022-06-22 19:45] LABS: UTC Strep Screen (Rapid) Positive (Negative)
--- NOTE | 2022-06-22 19:58 | EXP.UTC ---
Discharge Plan Disposition Patient Disposition: Home, Self-Care Condition: Good Prescriptions Prescriptions: New azithromycin [azithromycin] 250 mg tablet 250 mg PO DIRECTED Qty: 4 0RF Rx Instructions: one (1) tablet day #2 thru #5- first dose given in er No Action ParaGard T 380A 380 square mm intrauterine device 0 % INTRAUTERI . sertraline 50 MG tablet 50 mg PO DAILY Referrals Follow up/Referrals: Umair Magdaleno MD [Primary Care Provider] - See instructions Activity Restrictions/Add. Instructions Additional Instructions/Restrictions: Start antibiotics today be sure to take it as ordered with the full length of time although you should start feeling better in 24-48 hours. Change toothbrush and toothpaste 24-48 hours after starting antibiotics Tylenol or Motrin as needed for fever or pain Encourage fluids, water, Gatorade, Powerade, try cold fluids, popsicles, ice cream will make it feel better You are contagious for 24 hours. Avoid kissing anyone, no eating or drinking after anyone. You are contagious. Follow-up the ER for new or worsening symptoms or no noticeable improvement over the next 24-48 hours. Follow-up with PCP this week. Clinical Impressions Clinical Impression: Strep sore throat Instructions Patient Instructions: DI for Strep Throat Discharge ED Provider: Elana ([facility] [place] General Stated complaint: Throat swollen, bodyahces Mode of Arrival: Ambulatory Source of Information: Patient Limitations: No Limitations Time Seen by Provider: 06/22/22 19:58 Description of Symptoms (Recalled from Triage Doc. by RN): PATIENT C/O SWOLLEN LYMPH NODES, SORE THROAT WITH BLISTERS, AND BODY ACHES SINCE LAST NIGHT HEENT Symptoms (Recalled from RN notes): Yes Resp Symptoms (Recalled from RN notes): No Skin Symptoms (Recalled from RN notes): No MS Symptoms (Recalled from RN notes): No Functional Status (Recalled from RN notes): WNL History of Present Illness Provider Complaint: 27 yr old female presents for fever,sore throat,swollen lymph nodes, and body aches Related Data Home Medications Medication Instructions Recorded Confirmed copper 380 square mm intrauterine 0 % intrauterine . control 10/19/20 11/02/21 device (ParaGard T 380A) sertraline 50 mg tablet 50 mg PO DAILY ANTIDEPRESSANT 11/02/21 11/02/21 Previous Rx's Medication Instructions Recorded azithromycin 250 mg tablet 250 mg PO DIRECTED #4 tabs 06/22/22 Allergies Allergy/AdvReac Type Severity Reaction Status Date / Time No Known Allergies Allergy Verified 10/25/21 11:20 Worker's Comp Is this a Worker's Comp case?: No [facility] Disclaimer: The information contained in this section may have been updated after the patient was seen, as this information can be updated by other users. Social History , [employer]) Smoking Status: Former smoker alcohol intake: never substance use type: denies use current occupational status: unemployed Travel in the last 8 weeks: None household members: spouse housing: house ROS Obtained: Yes All systems reviewed & no additional complaints except as documented Constitutional Constitutional: Reports system reviewed and no additional complaints, except as documented, Reports as per HPI, Reports fever(s) and Reports headache(s) Eyes Eyes: Reports system reviewed and no additional complaints, except as documented and Reports as per HPI ENT Ears, Nose, Mouth, and Throat: Reports system reviewed and no additional complaints, except as documented, Reports as per HPI, Reports headache(s) and Reports sore throat Cardiovascular Cardiovascular: Reports system reviewed and no additional complaints, except as documented Respiratory Respiratory: Reports system reviewed and no additional complaints, except as documented Musculoskeletal Musculoskeletal: Reports system reviewed and no additional complai
[2022-06-22 20:05] VITALS: BP 138/74; PULSE 139; RESP 20; TEMP 37.8; O2SAT 100
== END 2022-06-22 20:08 | disposition home or self-care (01) ==
PROVIDERS: Emergency Provider Nurse Practitioner Family; PCP Family Medicine
DX: J02.0 Streptococcal pharyngitis (principal)
CPT/HCPCS: 87880; 99212; 99214; G0463

== ENCOUNTER 2023-04-04 19:21 | Outpatient (CLI) | payer OTHER, SELFPAY | END 2023-04-04 23:59 | LOC: LAB.DROPOF 19:23 | PROVIDERS: PCP Student in an Organized Health Care Education/Training Program; Visit Provider Student in an Organized Health Care Education/Training Program | DX: J02.0 Streptococcal pharyngitis (principal); B95.0 Streptococcus, group A, as the cause of diseases classified elsewhere | CPT/HCPCS: 87070 ==

== ENCOUNTER 2023-06-16 15:35 | Outpatient (CLI) | payer OTHER, SELFPAY ==
--- NOTE | 2023-06-16 15:35 | US_ITS ---
PROCEDURE INFORMATION: Exam: US Right Breast, Complete Exam date and time: 06/16/2023 3:35 PM Age: 28 years old Clinical indication: Breast pain; Right TECHNIQUE: Imaging protocol: Complete ultrasound of all four quadrants of the right breast and the retroareolar regions, including ultrasound of the axilla when performed. COMPARISON: No relevant prior studies available. FINDINGS: Breast: Sonographic images of the right breast including the retroareolar region, all 4 quadrants and the axilla do not demonstrate any solid or cystic masses. No architectural distortion or acoustical shadowing. No skin thickening or axillary adenopathy. IMPRESSION: No sonographic evidence of malignancy. Annual mammographic screening is recommended unless otherwise clinically indicated. ASSESSMENT: BI-RADS Category 1: Negative.
== END 2023-06-16 23:59 ==
LOC: RAD 15:35
PROVIDERS: PCP Obstetrics & Gynecology; Visit Provider Obstetrics & Gynecology
DX: N64.4 Mastodynia (principal); Z80.3 Family history of malignant neoplasm of breast
CPT/HCPCS: 76641

== ENCOUNTER 2024-09-01 19:42 | Emergency (ER) | payer OTHER, SELFPAY ==
[2024-09-01 19:53] VITALS: BP 130/90; PULSE 88; RESP 18; TEMP 36.6; O2SAT 98; BMI 28.3
--- NOTE | 2024-09-01 19:54 | XR_ITS ---
PROCEDURE INFORMATION: Exam: XR Right Ankle Exam date and time: 09/01/2024 7:55 PM Age: 29 years old Clinical indication: Injury or trauma; Fall; Blunt trauma; Ankle and foot; Right; Additional info: Ankle pain TECHNIQUE: Imaging protocol: Radiologic exam of the right ankle. Views: 3 or more views. AP Oblique Lateral COMPARISON: No relevant prior studies available. FINDINGS: Bones/joints: No visualized bony fracture or dislocation. No evidence for a joint effusion. Soft tissues: The soft tissue appear unremarkable. Notes: If there is further concern, recommend follow-up radiographs or MRI for complete assessment. IMPRESSION: No acute bony findings.
--- NOTE | 2024-09-01 19:54 | XR_ITS ---
PROCEDURE INFORMATION: Exam: XR Right Foot Exam date and time: 09/01/2024 7:57 PM Age: 29 years old Clinical indication: Injury or trauma; Fall; Blunt trauma and swelling (edema); Ankle and foot; Right; Additional info: Foot injury TECHNIQUE: Imaging protocol: Radiologic exam of the right foot. Views: 3 or more views. AP Oblique Lateral COMPARISON: CR XR ANKLE RT MIN 3V 09/01/2024 7:55 PM FINDINGS: Bones/joints: No visualized bony fracture or dislocation. No evidence for a joint effusion. Soft tissues: The soft tissue appear unremarkable. Notes: If there is further concern, recommend follow-up radiographs for complete assessment. IMPRESSION: No acute bony findings.
--- OUTSIDE RECORDS SUMMARY | 2024-09-01 19:54 | XMS_ITS | Data Portability ---
Author Organization [facility], [facility] [place] [facility] Address [address] [facility] [address] [place] [address] Assessment No assessment recorded. Plan of Treatment Reminders Order Date Submit Date Provider Last Modified By Organization Details Last Modified Time Details Appointments None recorded. Lab surgical pathology study 2020 021 [facility], [address] [place] [address], [id number], 10:52:33 Referral None recorded. Procedures None recorded. Surgeries None recorded. Imaging None recorded. Medication Orders None recorded. Patient TargetsNo targets recorded. Patient Instructions Encounter Date Encounter Id Patient Instructions Last Modified By Organization Details Last Modified Time 12/26/2020 [id number] Risks/Benefits/O p tions/Side Effects of diagnosis and treatment discussed. UV protection and signs of skin cancer discussed [email or web address] Not available 12/26/2020 12:37:39 Reason for Referral None Reported. Results Created Date Observation Date Name Description Value Unit Range Abnormal Flag Note LastModifiedBy Organization Detail LastModifiedTime 12/27/19 21 12/26/2020 SURGI LEONARDA surgical SEE BELOW Depar tment of Patho logy Surgi leonarda Patho logy Repor t NAME: LALY VALENZUELA PATH. :SC-2 [id number] Copy to: Diagn osis: Right upper abdom en: -Sebo rrhei c kerat osis. SOURC E OF SPECI MEN: SKIN BIOPS Y, RIGHT UPPER ABDOM EN CLINI LEONARDA INFOR MATIO N: D48.5 SK R/O ATYPI LEONARDA NEVUS Gross Descr iptio n: Recei zach in forma christina label ed with the patie nt's name and desig nated as righ t upper abdom en is a shave biops y of skin (0.8 x 0.7 x 0.2 cm). The epide rmal surfa ce is edmond, rough ened and nodul ar. The mariano n is inked blue. The speci men is trise cted and entir guerline submi tted in one casse tte. JAB 12/27 02:36 PM Micro scopi c Descr iptio n: Secti ons show an upwar d, parti ally papil lomat ous growt h of bland basal oid kerat inocy jose with pseud ohorn cysts and sligh t hyper pigme ntati on. No melan ocyti c proli ferat ion is ident ified . WENDY PRATT MD Lisset d Out Date: 12/28 10:51 Page 1 of 1 Not Available [facility] [address] [facility], [place], [address], 12/28/2020 10:52:33 Result Notes None recorded. Procedures Surgical History Date Name Laterality Status Provider Name and Address Organization Details Recorded Time 12/26/2020 Shave Lesion; trunk, arm, leg completed Pamela Fleming [facility] 12/26/2020 12:45:39 Imaging Results None recorded. Procedure Notes None recorded. Medical Equipment None Reported. Allergies No known drug allergies Medications Name Sig Start Date Stop Date Status Note LastModified by Organization Details LastModified Time intrauterine device (IUD) Take by intrauterin e route. active Not Available Not Available No t Available Vitals None Recorded Social History None recorded. Functional Status None recorded. Mental Status None recorded. Family History Nothing Reported. Medical History No medical history recorded. Gynecological HistoryNo gynecological history recorded. Obstetrics History GPAL:G 0 P 0 0 0 0 Past Encounters Encounter ID Performer Location Encounter Start Date Encounter Closed Date Diagnosis/Indication Diagnosis SNOMED-CT Code Diagnosis ICD10 Code Diagnosis Note [id number] JEANNE WARD APRN [facility] [address] [place] [address] 12/26/2020 12:12:04 12/26/2020 12:48:38 Neoplasm of uncertain behavior of skin 15209176 D48.5 RIGHT UPPER ABDOMENSK R/O ATYPICAL NEVUSSHAVE REMOVALSEE PROCEDURE NOTEWOUND CARE INSTRUCTIO NS PROVIDEDF/ U PER PATH Health Concerns Section Related Observation LastModified by Organization Detai ls LastModified Time None Recorded Concern Status LastModified by Organization Details LastModified Time None Recorded Advance Directives Directive None Recorded Payers Insurance Date Sequence Insurance Name Policy Number Policy Connolly Covered Member ID Connolly Member ID Guarantor Name 01/01/2021 1 [facility] [id number] Elen Griffin [id number] Elen Griffin Notes Date Note Type Note Provider Name and Address Organization Details Recorded Time 12/26/2020 text/html NEW PATIENT 1) PT C/O LESION ON RIGHT ABDOMEN X MANY YEARS (-)ITCH/BLEED/P AIN. PT STATES AREA HAS CHANGED IN SIZE AND TEXTURE IN THE LAST 6 MONTHS AND WOULD LIKE TO HAVE CHECKED TODAY. NO TX Denies any other new, changing, or bleeding lesions, or other rashes, feels well, in a good mood, and has no family history of melanoma. JEANNE WARD, PSYCHOLOGY CLINICIAN [address], [place], [address], [facility] 12/26/2020 13:25:57 OBGyn Episode No OBEpisode recorded.
--- OUTSIDE RECORDS SUMMARY | 2024-09-01 19:54 | XMS_ITS | Data Portability ---
Author Organization [facility] - Calin burden MD, Main Office Address [address] [place] [address], [facility] [address] [place] [address] Care Team Providers Care Supervisor Border Department Name Role Phone SHANTI LI Primary Care Provider [phone] Assessment No assessment recorded. Plan of Treatment Reminders Order Date Submit Date Provider Last Modified By Organization Details Last Modified Time Details Appointments None record ed. Lab None record ed. Referral None record ed. Procedures None record ed. Surgeries None record ed. Imaging None record ed. Medication Orders None record ed. Patient TargetsNo targets recorded. Patient Instructions Encounter Date Encounter Id Patient Instructions Last Modified By Organization Details Last Modified Time 12/20/2021 [id number] Numbness and Tingling: Care Instructions [email or web address] Not available 12/20/2021 14:24:24 Reason for Referral None Reported. Results Created Date Observation Date Name Description Value Unit Range Abnormal Flag Note LastModifiedBy Organization Detail LastModifiedTime 12/21/19 22 12/20/2021 elect romyo gram + nerve condu ction study No observ ation record ed. BARCODE Not Available 2021 14:31:44 Result Notes None recorded. Problems No Known Problems Procedures Surgical History Date Name Laterality Status Provider Name and Address Organization Details Recorded Time 12/20/2021 NCV/EMG completed Lamin Mcbride MD 12/20/2021 14:24:17 Imaging Results None recorded. Procedure Notes None recorded. Medical Equipment None Reported. Allergies No known drug allergies Medications Name Sig Start Date Stop Date Status Note LastModified by Organization Details LastModified Time levofloxacin 750 mg tablet active Not Available Not Available Not Available methylprednisolone 4 mg tablets in a dose pack active Not Available Not Available No t [...] SNOMED-CT Code Diagnosis ICD10 Code Diagnosis Note [id number] Calin Mcbride MD Main Office [address], [facility] [address] [place] [address] 12/20/2021 13:16:22 12/20/2021 14:25:05 Paresthesia 16646365 R20.2 Health Concerns Section Related Observation LastModified by Organization Detai ls LastModified Time None Recorded Concern Status LastModified by Organization Details LastModified Time None Recorded Advance Directives Directive None Recorded Payers Encounter Date Sequence Insurance Name Policy Number Policy Connolly Covered Member ID Connolly Member ID Guarantor Name 12/20/2021 1 [employer] [id number] Elen Griffin [id number] Elen Griffin OBGyn Episode No OBEpisode recorded.
--- NOTE | 2024-09-01 20:05 | ED_ITS ---
<Statement entered by Idania Machado DO - 09/01/24 23:53> I was consulted by the СВЕТЛАНА, and we discussed the complexity of the problems being addressed. I approved the treatment and management plan for this patient's care in the emergency department, thus performing a substantive portion of the medical decision making. Idania Machado DO Discharge Plan Disposition Patient Disposition: Home, Self-Care Prescriptions Prescriptions: No Action albuterol sulfate 90 mcg/actuation HFA aerosol inhaler inhalation ketoconazole 2 % cream 1 applic topical DAILY 14 Days Qty: 30 0RF Referrals Follow up/Referrals: Umair Magdaleno MD [Primary Care Provider, Medical] - See instructions Edwin Domingo DO [Staff Physician, Orthopedics] - See instructions Activity Restrictions/Add. Instructions Additional Instructions/Restrictions: Ice, elevate, compress and use ibuprofen. Use the crutches for stability. Please follow-up with your PCP for further instructions. You may need to follow-up with Dr. Domingo who is our Ortho doctor. I will talk to Dr. Magdaleno first. If you have any further issues or concerns please return to the ED or call your PCP. Clinical Impressions Clinical Impression: Ankle sprain, Foot sprain Instructions Patient Instructions: Sprain Print Language Print Language: Spanish Discharge ED Provider: Idania Machado General Adult HPI General Chief complaint: Extremity Injury, Lower Stated complaint: AO 6-11 went down slide hurt right foot Time Seen by Provider: 09/01/24 19:52 Mode of Arrival: Wheelchair Source of Information: Patient Description of Symptoms (Recalled from ER Triage Doc. by RN): Pt presents to ED for a R foot/ankle injury. Pt states she went down a slide into a pool and hit her foot extremely hard. Pt has notable bruising to top of foot. Pt states pain is 5/10. Pt is A&O*4. This happened at approx 1630 today. History of Present Illness HPI narrative: 29-year-old female presents to the ED today for complaint of right foot and ankle injury. She went down a slide into a pole and hit her foot hard on the ground. She does have bruising on the top of her foot she has pain on the top of her foot as well she says this happened about 430 today. She does have swelling over the top of her foot and the lateral malleolus. No other injury. Related Data Home Medications ?Medication ?Instructions ?Recorded ?Confirmed albuterol sulfate 90 mcg/actuation inhalation 04/04/23 11/18/23 aerosol inhaler Previous Rx's ?Medication ?Instructions ?Recorded ketoconazole 2 % topical cream 1 applic topical DAILY 2 weeks #30 11/18/23 grams Allergies Allergy/AdvReac Type Severity Reaction Status Date / Time No Known Allergies Allergy Verified 11/18/23 08:34 [facility] Disclaimer: The information contained in this section may have been updated after the patient was seen, as this information can be updated by other users. Medical History (Updated 09/01/24 @ 21:04 by Maegan Savage (ED), HOUSE SHORER) Candidal intertrigo Mixed stress and urge urinary incontinence Dyspareunia Rectocele Family history of breast cancer Anxiety and depression Surgical History No significant past surgical history Family History Grandmother Cancer maternal-breast Social History Smoking Status: Current every day smoker tobacco type: cigarettes packs per day: 1 alcohol intake: never substance use type: denies use current occupational status: unemployed Travel in the last 8 weeks?: None household members: spouse housing: house Have you lived/traveled outside US in past 30 days?: No Contact w/someone who lives/traveled outside US past 30 days?: No Exposure to someone with infectious disease in past 14 days?: No Do you have a fever (greater than 100.4 F or 38 C)?: No Have you tested positive for COVID-19?: No Exposed to someone with COVID-19 in past 14 days?: No Do you have a sore throat?: No Do you have a cough?: No Do you have any weakness?: No Do you have any diarrhea?: No Are you experiencing any unusual bleeding?: No Do you have any muscle aches/pain?: No Do you have any abdominal pain?: No Are you experiencing loss of taste or smell?: No Other Medical History Have you received the Flu Vaccine for this season: No Have you received the Pneumonia Vaccine: No ROS Obtained: Yes Systems reviewed as appropriate & no additional complaints except as documented Constitutional Constitutional: Reports as per HPI Physical Exam General General appearance: alert Head Head exam: normocephalic Eye Eye exam: Present PERRL and EOMI ENT ENT exam: Present normal oropharynx and mucous membranes moist Neck Neck exam: Present full ROM and trachea midline Respiratory Respiratory exam: Present normal lung sounds bilaterally Cardiovascular Cardiovascular exam: Present regular rate, normal rhythm, normal heart sounds, +S1 and +S2 Abdominal Exam Abdominal exam: Present soft and normal bowel sounds Extremities Exam Extremities exam: Present tenderness, normal capillary refill and edema Neurological Exam Neurological exam: Present alert, oriented X3 and normal gait Skin Skin exam: Present warm and dry Medical Decision Making Medical Records Screening: Per USPSTF and CDC recommendations, given the prevalence of disease in our region, it is our hospital?s policy to screen for HIV and viral Hepatitis for all patients aged 18 and over and those with ongoing risk factors. Smith Inquiry Pt receiving controlled substance: No Smith was queried for this patient: No Vital Signs: 09/01/24 19:53 09/01/24 21:30 Temperature 97.9 F 97.9 F Temperature Source Oral Oral Pulse Rate 82 Pulse Rate [Left] 88 Respiratory Rate 18 18 Blood Pressure 130/70 Blood Pressure [Right Arm] 130/90 Blood Pressure Mean [Right Arm] 103 02 Sat by Pulse Oximetry 98 Oxygen Delivery Method Room Air Room Air Orders (Tests/Meds): ORDERS Category Date Time Status Ankle XR -Right minimum 3 Views [XR ankle RT min 3V] Exams 09/01/24 19:54 Completed Stat Foot XR right minimum 3 views [XR foot RT min 3V] Stat Exams 09/01/24 19:54 Completed Medical Decision Narrative: patient is a 29-year-old female presenting to the emergency department for evaluation of right foot and ankle pain, swelling and bruising. Patient is hemodynamically stable and nontoxic-appearing upon arrival, afebrile. Differential diagnosis includes fracture versus sprain strain of ankle and foot. Workup will be conducted with specific imaging. Imaging informally interpreted by me and remarkable for no acute fracture or dislocation. Formal imaging read remarkable for no acute fracture or dislocation. Upon repeat evaluation patient's pain is improved. Will place patient in splint and give crutches for stability. Have patient follow-up with Ortho. She will rest, ice, compress and elevate. She will use ibuprofen. She is safe for discharge home. Critical Care Critical Care Time Critical Care Time: No
[2024-09-01 21:30] VITALS: BP 130/70; PULSE 82; RESP 18; TEMP 36.6; O2SAT 98
== END 2024-09-01 21:34 | disposition home or self-care (01) ==
PROVIDERS: Emergency Provider Emergency Medicine; PCP Family Medicine
DX: S93.401A Sprain of unspecified ligament of right ankle, initial encounter (principal); S93.601A Unspecified sprain of right foot, initial encounter; W22.8XXA Striking against or struck by other objects, initial encounter
CPT/HCPCS: 73610; 73630; 99283